=== PATIENT | female | born 1945 | race Caucasian/White ===

== ENCOUNTER 2019-10-14 12:15 | Outpatient (CLI) | payer MEDICARE, SELFPAY ==
--- NOTE | ~2019-10-14 | US_ITS ---
EXAMINATION: US carotid duplex BI DATE: 10/14/2019 16:38 INDICATION: Carotid stenosis TECHNIQUE: Grayscale, color Doppler, and pulsed Doppler images of the cervical carotid arteries were obtained. The degree of vessel stenosis is placed in one of the following categories: normal, <50%, 5 0-69%, >=70% but less than near-occlusion, near-occlusion, or total occlusion. Note that percent sten osis relative to normal distal artery lumen diameter is indirectly measured from velocity measurement s as described by Lex, et al. Radiology 2003; [id number]:340-346. COMPARISON: 12/31/2011 FINDINGS: RIGHT: The right common carotid artery (CCA) peak systolic velocity (PSV) is 96 cm/s. The right internal car otid artery (ICA) PSV is 94 cm/s. The right ICA end-diastolic velocity (EDV) is 31 cm/s. The right IC A/CCA PSV ratio is 1.0. Grayscale and color Doppler images yield an estimate of less than 50% diamete r reduction from plaque in the ICA. The external carotid artery (ECA) PSV is 94 cm/s. There is antegr vannesa flow in the right vertebral artery. LEFT: The left CCA PSV is 97 cm/s. The left ICA PSV is 88 cm/s. The left ICA EDV is 2 cm/s. The left ICA/CC A PSV ratio is 0.9. Grayscale and color Doppler images yield an estimate of less than 50% diameter re duction from plaque in the ICA. The ECA PSV is 85 cm/s. There is antegrade flow in the left vertebral artery. IMPRESSION: 1. <50% stenosis in the right internal carotid artery. 2. <50% stenosis in the left internal carotid artery. Reviewed, dictated and finalized at location A.
--- NOTE | ~2019-10-14 | MM_ITS ---
EXAMINATION: MM screening [facility] BI w jeremias HISTORY: Screening mammogram TECHNIQUE: Craniocaudal and mediolateral oblique 3-D tomosynthesis images were obtained and synthetic 2-D images were generated. CAD analysis was submitted and interpreted. COMPARISON: Comparison to multiple prior studies sequentially, with oldest reviewed study dated 08/09. BREAST PARENCHYMAL COMPOSITION: There are scattered areas of fibroglandular density. FINDINGS: There is no evidence of suspicious mass, calcification, or architectural distortion to sugg est malignancy in either breast. There has been no suspicious interval change. IMPRESSION: 1. No mammographic evidence of malignancy. 2. Recommend routine screening mammography in one year. BI-RADS Category 1: Negative Reviewed, dictated and finalized at location A.
== END 2019-10-14 12:16 | disposition home or self-care (01) ==
LOC: CHSIMG 12:20
PROVIDERS: PCP Internal Medicine; Visit Provider Internal Medicine
DX: Z12.31 Encounter for screening mammogram for malignant neoplasm of breast (principal); I65.23 Occlusion and stenosis of bilateral carotid arteries
CPT/HCPCS: 77063; 77067; 93880

== ENCOUNTER 2019-11-02 01:09 | Outpatient (CLI) | payer MEDICARE, SELFPAY ==
[2019-11-02 19:24] LABS: SARS-CoV-2 RNA PCR Negative
== END 2019-11-02 01:10 | disposition home or self-care (01) ==
LOC: ANHCOVIDDT 01:09
PROVIDERS: PCP Internal Medicine; Visit Provider Surgery
DX: Z01.812 Encounter for preprocedural laboratory examination (principal); Z11.59 Encounter for screening for other viral diseases
CPT/HCPCS: 87635; C9803; U0003

== ENCOUNTER 2019-11-04 01:48 | Day surgery (SDC) | payer MEDICARE, SELFPAY ==
[2019-10-28 13:50] VITALS: BMI 23.0
[2019-11-04 07:02] VITALS: BP 163/81; PULSE 70; RESP 16; TEMP 37; O2SAT 100; BMI 23.0
[2019-11-04 07:36] LABS: Glucose Point of Care 120 (65-105)
--- NOTE | 2019-11-04 07:58 | PM.HPGS ---
History of Present Illness History of Present Illness Consent: Risks, benefits, and alternatives of an upper GI endoscopy with possible biopsies have been discussed and questions answered. Patient agrees to proceed with procedure. Chief complaint: Melena Narrative: Lila Ravi is a 74 year old female recent presented to her PCP with blood in the stool. Apparently the 1st time that she had this occur was on 10/14/2019 she apparently saw fairly bright red blood twice on the stool. Later the medic easy was described as black tarry stools. Patient denied any abdominal pain. Patient's last colonoscopy was in 2018 was reported as normal. Further history reveals that the patient was on Alendronate for osteoporosis. This was stopped after her visit with the PCP. She was started on b.i.d. Protonix and referred for EGD since she has not previously had this. She had not been taking any NSAIDs routinely for arthritis or other problems. Today the patient denies any recent melena since she started her Protonix about now 3 weeks ago. She presents at this time for a EGD for further workup. Review of Systems Constitutional: Constitutional: Reports no additional constitutional complaints, Reports fatigue and Denies malaise Eyes: Eyes: Denies change in vision and Denies loss of vision ENT: Reports Normal hearing present, Denies change in voice, Denies dizziness, Denies hoarseness and Denies sore throat Cardiovascular: Cardiovascular: Denies chest pain, Denies leg edema and Denies dyspnea Respiratory: Respiratory: Denies cough, Denies dyspnea and Denies wheezing Gastrointestinal: Gastrointestinal: Denies abdominal pain, Reports melena, Denies change in bowel habits and Denies heartburn Genitourinary: Genitourinary: Denies urinary frequency and Denies urinary incontinence Neurologic: Reports Normal hearing present, Denies confusion, Denies dizziness, Denies loss of vision, Denies memory loss and Denies seizure-like activity Psychiatric: Psychiatric: Denies confusion, Denies depression and Denies memory loss Endocrine: Endocrine: Denies cold intolerance and Reports fatigue Hematologic/Lymphatic: Hematologic/Lymphatic: Denies easy bleeding and Denies easy bruising Allergic/Immunologic: Allergic/Immunologic: Denies wheezing PMFSH Past Medical History Medical History DM type 2 (diabetes mellitus, type 2) (Unknown) HTN (hypertension) (Unknown) Hyperlipemia (Unknown) Osteoporosis (Unknown) Vitamin D deficiency (Unknown) Family History Family History (Updated 11/04/19 @ 09:42 by Marco A Meneses MD) Father No history of peptic ulcer disease Mother No history of peptic ulcer disease Meds Home Medications and Allergies Home Medications Medication Instructions Recorded Confirmed Type cholecalciferol (vitamin D3) 25 mcg PO DAILY 10/28/19 11/04/19 History [Vitamin D3] fosinopril 10 mg PO QAM 10/28/19 11/04/19 History glipizide 5 mg PO BID 10/28/19 11/04/19 History metformin 1,000 mg PO BID 10/28/19 11/04/19 History pantoprazole 40 mg PO BID 10/28/19 11/04/19 History pravastatin 20 mg PO HS 10/28/19 11/04/19 History Allergies Allergy/AdvReac Type Severity Reaction Status Date / Time aspirin Allergy Severe TROUBLE Verified 11/04/19 07:01 BREATHING Vital Signs Vital Signs - 24 hr 11/04/19 07:02 Temperature 37.0 C Pulse Rate 70 Respiratory Rate 16 Blood Pressure 163/81 H Pulse Oximetry 100 Exam Const: General: cooperative, healthy appearing, no acute distress, well developed and alert; No confusion Nutritional Appearance: well nourished Orientation/consciousness: patient oriented x3 and No confusion Limitations: no limitations HENMT: Head: normal to inspection, normocephalic and atraumatic Ears: hearing grossly normal bilaterally General nose exam: Normal external nose present Face and sinus: no edema Mouth: Yes Nor
--- NOTE | 2019-11-04 08:13 | WPDANESEPPF ---
Anes - Initial Pre Proc Eval Procedure: Operation Date: 11/04/19 08:30 Proposed Procedures p Esophagogastroduodenoscopy - Marco A Meneses MD Date/Time: 11/04/19 08:13 Surgeon: Marco A Meneses MD Pre Op Diagnosis: Melena Patient Data Age: 74 Gender: F Height: 1.6 m Weight: 59 kg Last Vital Signs Temp 37.0 C 11/04/19 07:02 Pulse 70 11/04/19 07:02 Resp 16 11/04/19 07:02 BP 163/81 H 11/04/19 07:02 Pulse Ox 100 11/04/19 07:02 Allergies Allergy/AdvReac Type Severity Reaction Status Date / Time aspirin Allergy Severe TROUBLE Verified 11/04/19 07:01 BREATHING Home Medications Medication Instructions Recorded Confirmed Type cholecalciferol (vitamin D3) 25 mcg PO DAILY 10/28/19 11/04/19 History [Vitamin D3] fosinopril 10 mg PO QAM 10/28/19 11/04/19 History glipizide 5 mg PO BID 10/28/19 11/04/19 History metformin 1,000 mg PO BID 10/28/19 11/04/19 History pantoprazole 40 mg PO BID 10/28/19 11/04/19 History pravastatin 20 mg PO HS 10/28/19 11/04/19 History Laboratory Tests 11/04/19 07:33 POC Capillary Glucose 120 mg/dl H mg/dl (65-105) Patient hx anesthesia problems: none Family hx anesthesia problems: none PMFSH Past Medical History Medical History DM type 2 (diabetes mellitus, type 2) (Unknown) HTN (hypertension) (Unknown) Hyperlipemia (Unknown) Osteoporosis (Unknown) Vitamin D deficiency (Unknown) Anes - Eval Final PreProcedure Day of Procedure 11/04/19 08:13 Patient weight: obese Heart: regular rate and rhythm Lungs: clear to auscultation and normal air movement Airway: Mallampati scale class II Neurological: alert and oriented Last oral intake: >/= 8 hours ASA classification: III Emergent: no Anesthetic plan: proceed Anesthesia type and monitoring: general GIVS Informed Consent: The patient's anesthetic plan and its attendant risks and benefits were discussed with the patient/family/POA. Questions were solicited and answers provided to the satisfaction of the patient/family/POA.
[2019-11-04] MEDS: LACTATED RINGERS 1,000 ML 150 ML IV CONT (08:37)
[2019-11-04] MEDS: BENZOCAINE (*SP) 60 ML SPRAY CAN (HURRICAINE) 1 SPRAY MUCOUS MEM (08:40)
[2019-11-04 09:17] VITALS: BP 92/39; PULSE 52; RESP 16; O2SAT 99
[2019-11-04 09:27] VITALS: BP 123/57; PULSE 55; RESP 16; O2SAT 100
[2019-11-04 09:37] VITALS: BP 133/57; PULSE 54; RESP 16; O2SAT 100
[2019-11-04 09:47] VITALS: BP 141/60; PULSE 58; RESP 16; O2SAT 100
== END 2019-11-04 10:20 | disposition home or self-care (01) ==
PROVIDERS: PCP Internal Medicine; Visit Provider Surgery
PROC: 0DJ08ZZ Inspection of Upper Intestinal Tract, Via Natural or Artificial Opening Endoscopic (ICD-10-PCS; CPT 43235; principal; 2019-11-04 08:30)
DX: K92.1 Melena (principal); K29.50 Unspecified chronic gastritis without bleeding; K29.80 Duodenitis without bleeding; K29.30 Chronic superficial gastritis without bleeding; K31.7 Polyp of stomach and duodenum; I10 Essential (primary) hypertension; E78.5 Hyperlipidemia, unspecified; E11.9 Type 2 diabetes mellitus without complications; E55.9 Vitamin D deficiency, unspecified; M81.0 Age-related osteoporosis without current pathological fracture; Z79.84 Long term (current) use of oral hypoglycemic drugs
CPT/HCPCS: 43239; 87081; 87635; 88305; C9803; J2704; J7120; U0003

== ENCOUNTER 2020-01-12 14:10 | Outpatient (CLI) | payer MEDICARE, SELFPAY ==
--- NOTE | ~2020-01-12 | DEXA_ITS ---
BMD(1) Young-Adult(2) Age-Matched(3) Region (g/cm2) T-score Z-score WHO Classification L1 1.034 -0.9 1.1 Normal L2 1.051 -1.3 0.7 Osteopenia L3 1.185 -0.3 1.8 Normal L4 1.051 -1.3 0.7 Osteopenia L1-L4 1.081 -0.9 1.1 Normal Trend: L1-L4 Change vs Change vs Measured Age BMD(1) Baseline Previous Date (years) (g/cm2) (%) (%) 01[age]12/2020 [age] 1.081 6.5* 5.6* 09[age]28/2018 73.0 1.024 0.9 -3.2* 08/27/2016 70.9 1.058 4.2* 3.9* 08[age]17/2014 68.9 1.018 0.3 -3.4* 07[age]29/2012 66.9 1.054 3.8* 0.3 07/13/2010 64.8 1.051 3.5* 3.5* 07/08/2008 62.8 1.015 baseline - * - Indicates significant change based on 95% confidence interval. 1 - Statistically 68% of repeat scans fall within 1SD (+- 0.010 g/cm2 for AP Spine L1-L4) 2 - [place] (Combined NHANES (ages 20-30) / [employer] (ages 20-40)) AP Spine Reference Population (v112) 3 - Matched for Age, Weight (females 25-100 kg), Ethnic 11 - World Health Organization - Definition of Osteoporosis and Osteopenia for Women: Normal = T-score at or above -1.0 SD; Osteopenia = T-score between -1.0 and -2.5 SD; Osteoporosis = T-score at or below -2.5 SD; (WHO definitions only apply when a young healthy Women reference database is used to determine T-scores.) Printed: 01/12/2020 2:55:08 PM (13.60)76:3.00:50.00:12.0 0.00:10.02 0.60x1.05 20.0:%Fat=35.0% 0.00:0.00 0.00:0.00 Filename: [id number] Scan Mode: Standard;OneScan 37.0 [employer] [id number] BMD(1) Young-Adult(2,7) Age-Matched(3) Region (g/cm2) T-score Z-score WHO Classification Neck Left 0.819 -1.6 0.5 Osteopenia Right 0.792 -1.8 0.3 Osteopenia Mean 0.805 -1.7 0.4 Osteopenia Difference 0.027 -0.2 -0.2 - Total Left 0.820 -1.5 0.4 Osteopenia Right 0.725 -2.2 -0.4 Osteopenia Mean 0.773 -1.9 0.0 Osteopenia Difference 0.095 -0.8 -0.8 - Hip Irving Length Comparison (mm) (Right = 102.3 mm) (Mean = 104.0 mm) (Left = 104.1 mm) Trend: Total Mean Change vs Change vs Measured Age BMD(1) Baseline Previous Date (years) (g/cm2) (%) (%) 01/12/2020 74.3 0.773 -6.5* 4.9* 09/28/2018 73.0 0.737 -10.9* -8.4* 07/29/2012 66.9 0.805 -2.7 -2.8 07/13/2010 64.8 0.828 0.1 0.1 07/08/2008 62.8 0.827 baseline - * - Indicates significant change based on 95% confidence interval. 1 - Statistically 68% of repeat scans fall within 1SD (+- 0.010 g/cm2 for DualFemur Total) 2 - [place] (Combined NHANES (ages 20-30) / [employer] (ages 20-40)) Femur Reference Population (v112) 3 - Matched for Age, Weight (females 25-100 kg), Ethnic 7 - DualFemur Total T-score difference is 0.8. Asymmetry is Mild. 11 - World Health Organization - Definition of Osteoporosis and Osteopenia for Women: Normal = T-score at or above -1.0 SD; Osteopenia = T-score between -1.0 and -2.5 SD; Osteoporosis = T-score at or below -2.5 SD; (WHO definitions only apply when a young healthy Women reference database is used to determine T-scores.) Printed: 01/12/2020 2:55:09 PM (13.60); Filename: [email or web address].[id number]; Right Femur; 17.4:%Fat=26.3%; Neck Angle (deg)= 54; Scan Mode: Standard 37.0 uGy; Left Femur; 16.6:%Fat=31.9%; Neck Angle (deg)= 61; Scan Mode: Standard 37.0 uGy [employer] [id number]
== END 2020-01-12 14:11 | disposition home or self-care (01) ==
LOC: CHSIMG 14:12
PROVIDERS: PCP Internal Medicine; Visit Provider Internal Medicine
DX: M81.0 Age-related osteoporosis without current pathological fracture (principal)
CPT/HCPCS: 77080

== ENCOUNTER 2020-05-12 09:16 | Outpatient (CLI) | payer MEDICARE, SELFPAY ==
--- NOTE | ~2020-05-12 | US_ITS ---
EXAMINATION: US retroperitoneal comp DATE: 05/12/2020 09:49 INDICATION: Hematuria TECHNIQUE: Multiple ultrasound grayscale images of the kidneys were obtained. COMPARISON: None. FINDINGS: The right kidney measures 9.7 x 3.8 x 5.2 cm. The left kidney measures 9.0 x 4.2 x 4.1 cm. The kidney s demonstrate normal echogenicity. There is no hydronephrosis in either kidney. No stones identified . The bladder is normal with calculated prevoid bladder volume of 100 mm and capitate and post void b ladder volume of 5 mL. IMPRESSION: 1. Normal kidneys without hydronephrosis. Reviewed, dictated and finalized at location B. [employer]
== END 2020-05-12 09:17 | disposition home or self-care (01) ==
LOC: CHSIMG 09:18
PROVIDERS: PCP Internal Medicine; Visit Provider Internal Medicine
DX: R31.9 Hematuria, unspecified (principal)
CPT/HCPCS: 76770

== ENCOUNTER 2020-05-25 08:58 | Outpatient (CLI) | payer MEDICARE, SELFPAY ==
[2020-05-25] MEDS: ZOLEDRONIC ACID 5 MG/100 ML 100 ML 400 MG IVPB (09:25)
[2020-05-25 09:34] VITALS: BP 153/63; PULSE 78; RESP 14; TEMP 36.6; O2SAT 100
--- NOTE | 2020-05-25 09:56 | PC.NURSE ---
Patient here Reclast infusion. Medication education given. No concerns voiced. Reclast infusion administered. Tolerated well. Safe exit of hospital.
== END 2020-05-25 08:59 | disposition home or self-care (01) ==
PROVIDERS: PCP Internal Medicine; Visit Provider Internal Medicine
DX: M81.0 Age-related osteoporosis without current pathological fracture (principal)
CPT/HCPCS: 96365; J3489

== ENCOUNTER 2020-07-26 07:07 | Outpatient (CLI) | payer MEDICARE, SELFPAY ==
--- NOTE | ~2020-07-26 | MR_ITS ---
EXAMINATION: MR brain/brain stem wo/w con DATE: 07/26/2020 08:36 INDICATION: Memory loss. Word finding difficulty. TECHNIQUE: Magnetic resonance imaging (MRI) of the brain and brainstem was performed without and with 10 mL MultiHance intravenous contrast. Sequences included sagittal and axial T1-weighted FSE, axial diffusion-weighted FS EPI, axial T2*-weighted GRE, axial T2-weighted FLAIR Propeller, and axial T2-we ighted Propeller. Postcontrast sequences included axial and coronal T1-weighted FSE. Apparent diffusi on coefficient (ADC) maps were created. COMPARISON: Head CT 03/06/2017 FINDINGS: There are scattered areas of nonspecific increased T2-weighted signal intensity in the cere bral white matter. There is no intracranial hemorrhage, acute infarction, or abnormal intracranial ma ss lesion. The ventricles are normal in size. The paranasal sinuses are clear. The orbits are normal. The mastoid air cells are normal. IMPRESSION: 1. Mild nonspecific cerebral white matter disease, which likely represents chronic small vessel ische michael disease. Reviewed, dictated and finalized at location A. IMPRESSION: 1. Mild nonspecific cerebral white matter disease, which likely represents drive shaft and steering post repairer miles small vessel ischemic disease.
[2020-07-26 07:26] LABS: Estimated Glomerular Filt Rate 47
== END 2020-07-26 07:08 | disposition home or self-care (01) ==
LOC: CHSIMG 07:08
PROVIDERS: PCP Internal Medicine; Visit Provider Internal Medicine
DX: R41.3 Other amnesia (principal)
CPT/HCPCS: 70553; A9577

== ENCOUNTER 2020-10-05 02:25 | Emergency (ER) | payer MEDICARE, SELFPAY ==
[2020-10-05 02:30] VITALS: BP 170/73; PULSE 75; RESP 20; TEMP 36.3; O2SAT 97
--- NOTE | 2020-10-05 02:38 | ECG_ITS ---
Measurements Intervals [place] Rate: 62 P: 111 AR: 140 QRS: 24 QRSD: 80 T: 36 QT: 387 QTc: 396 Interpretive Statements SINUS RHYTHM BASELINE ARTIFACT- I, II, III, AVR, AVF NORMAL ECG Electronically Signed On 10-05-2020 8:14:36 CDT by Frederic Gamble D.O.
[2020-10-05 02:52] LABS: Add Urine Microscopic? YES; Appearance Urine Clear (Clear); Bilirubin Urine Negative (Negative); Blood Urine Negative (Negative); Color Urine Light Yellow (Yellow); Glucose Urine UA Negative (Negative); Ketones Urine Negative (Negative); Leukocyte Esterase Ur 1+ LEU/UL (Negative); Nitrate Urine Negative (Negative); Protein Urine Negative (Negative)
--- NOTE | 2020-10-05 02:54 | ED.WEAKNESS ---
HPI - Weakness General Chief complaint: Weakness Stated complaint: weakness Time Seen by Provider: 10/05/20 02:40 Source: patient Mode of arrival: ambulatory Limitations: no limitations History of Present Illness HPI Narrative: Patient states she comes in after waking up about 1:30 shaking. She denies fever, chills, and dysuria. She evidently had shaking for a few minutes, as it resolved when she was on her way here in the ambulance. She denies any other symptoms. She has had chronic urinary leakage for some time and has been using pad because of this. She has otherwise felt well and has not been ill. Onset (ago): minute(s) Duration: constant (now resolved. ) Location: generalized Severity: mild Relieving factors: none Exacerbating factors: none Associated symptoms: denies other symptoms Related Data Home Medications Medication Instructions Recorded Confirmed cholecalciferol (vitamin D3) 25 mcg PO DAILY 10/28/19 10/05/20 [Vitamin D3] fosinopril 10 mg PO QAM 10/28/19 10/05/20 glipizide 5 mg PO BID 10/28/19 10/05/20 metformin 1,000 mg PO BID 10/28/19 10/05/20 pravastatin 20 mg PO HS 10/28/19 10/05/20 vitamin B complex [B 1 tablet PO DAILY 10/05/20 10/05/20 Complex-Vitamin B12] Allergies Allergy/AdvReac Type Severity Reaction Status Date / Time aspirin Allergy Severe TROUBLE Verified 11/04/19 07:01 BREATHING Review of Systems Constitutional: Constitutional: Reports no additional constitutional complaints Eyes: Eyes: Reports no additional eye complaints ENT: Reports system reviewed and no additional complaints, except as documented Cardiovascular: Cardiovascular: Reports no additional cardiovascular complaints Respiratory: Respiratory: Reports no additional respiratory complaints Gastrointestinal: Gastrointestinal: Reports no additional gastrointestinal complaints Genitourinary: Genitourinary: Reports no additional female genitourinary complaints Musculoskeletal: Musculoskeletal: Reports no additional musculoskeletal complaints Integumentary/Breasts: Skin/Breast: Reports system reviewed and no additional complaints, except as docu Neurologic: Reports system reviewed and no additional complaints, except as documented Psychiatric: Psychiatric: Reports no additional psychiatric complaints Endocrine: Endocrine: Reports no additional endocrine complaints Hematologic/Lymphatic: Hematologic/Lymphatic: Reports no additional hematologic/lymphatic complaints Allergic/Immunologic: Allergic/Immunologic: Reports no additional allergic/immunologic complaints PMFSH Past Medical History Medical History (Updated 10/05/20 @ 05:12 by Vikas Gomes MD) DM type 2 (diabetes mellitus, type 2) (Unknown) HTN (hypertension) (Unknown) Hyperlipemia (Unknown) Osteoporosis (Unknown) Vitamin D deficiency (Unknown) Surgical History Surgical History (Updated 10/05/20 @ 03:42 by Vikas Gomes MD) History of cholecystectomy Family History Family History (Updated 10/05/20 @ 03:42 by Vikas Gomes MD) Father No history of peptic ulcer disease Cerebrovascular accident Heart disease Mother No history of peptic ulcer disease Cerebrovascular accident Heart disease Social History Social History (Updated 10/05/20 @ 03:43 by Vikas Gomes MD) Smoking status: Never smoker Alcohol use details: rare very minimal alcohol use Substance use: never Additional living arrangements comments: , lives with Gender identity (if verbalized by the patient): Female Sexual Orientation (if Verbalized by the Patient): Straight or Heterosexual Exam Const: General: no acute distress and alert Orientation/consciousness: patient oriented x3 HENMT: Head: normal to inspection Ears: external ears normal General nose exam: Normal nares present Mouth: Yes Normal oral and palatal mucosa present Throat: posterior oropharynx normal Eyes: Conjunctivae: conjunctivae n
[2020-10-05 03:01] LABS: Bacteria Urine Trace /hpf; RBC Urine 0-2 /hpf (0-2); Squamous Epithelial Cell Urine None seen /hpf (Few)
[2020-10-05 03:15] LABS: Basophils Absolute Auto 0.07 K/mm3 (0.00-0.10); Basophils Percent Auto 1.1 % (0.0-1.0); Eosinophils Absolute Auto 0.25 K/mm3 (0.02-0.50); Eosinophils Percent Auto 3.8 % (1.0-6.0); Hematocrit 35.3 % (35.0-42.0); Hemoglobin 12.4 g/dL (11.7-13.8); Immature Granulocyte Absolute 0.06 K/mm3 (0.00-0.00); Immature Granulocyte Percent A 0.9 % (0.0-0.0); Lymphocytes Absolute Auto 1.81 K/mm3 (1.10-4.50); Lymphocytes Percent Auto 27.7 % (18.0-42.0); Mean Corpuscular HGB Conc 35.1 g/dL (32.0-36.0); Mean Corpuscular Hemoglobin 29.3 pg (27.0-31.0); Mean Corpuscular Volume 83.5 fL (78.0-102.0); Mean Platelet Volume 8.4 fl (9.2-11.8); Monocytes Absolute Auto 0.59 K/mm3 (0.10-0.90); Neutrophils Absolute Auto 3.8 K/mm3 (1.7-7.2); Neutrophils Percent Auto 57.5 % (50.0-70.0); Platelet Count Result 212 K/mm3 (150-420); Red Blood Count 4.23 M/mm3 (4.20-5.40); Red Cell Distribution Width 12.3 % (11.6-14.4); White Blood Count 6.5 K/mm3 (4.8-10.8)
[2020-10-05 03:36] LABS: Lactic Acid Reflex 1.3 mmol/L (0.4-2.0)
[2020-10-05 03:37] LABS: Alanine Aminotransferase 14 U/L (14-59); Albumin Level 3.5 g/dL (3.4-5.0); Alkaline Phosphatase 49 U/L (46-116); Anion Gap 13 mmol/L (8-16); Aspartate Amino Transferase 15 U/L (15-37); Bilirubin,Total 0.4 mg/dL (0.00-1.00); Blood Urea Nitrogen 12 mg/dL (7-18); Calcium 8.7 mg/dL (8.5-10.1); Carbon Dioxide 24 mmol/L (21-32); Chloride 99 mmol/L (98-108); Estimated CRCL calculation 46 ml/min; Estimated Glomerular Filt Rate > 60; Glucose 133 mg/dL (70-99); NT Pro B Type Natriuretic Pept 205 pg/mL (0-450); Osmolality Calculated 283 mOsm/kg (285-295); Sodium 136 mmol/L (136-145); Total Protein 6.2 g/dL (6.4-8.2)
[2020-10-05] MEDS: LIDOCAINE HCL 1% LOCAL INJ 20 ML VIAL (03:40)
[2020-10-05] MEDS: cefTRIAXone 1 GM VIAL IM (03:40)
[2020-10-05] MEDS: GENTAMICIN SULFATE INJ 240 MG in DEXTROSE 5% 100 ML 100 MG IVPB (05:09)
[2020-10-05 06:10] VITALS: BP 150/78; PULSE 82; RESP 20; TEMP 36.6; O2SAT 99
== END 2020-10-05 06:15 | disposition home or self-care (01) ==
PROVIDERS: Emergency Provider Emergency Medicine; PCP Internal Medicine
DX: N30.90 Cystitis, unspecified without hematuria (principal); E11.9 Type 2 diabetes mellitus without complications; I10 Essential (primary) hypertension; E78.5 Hyperlipidemia, unspecified; M81.0 Age-related osteoporosis without current pathological fracture; E55.9 Vitamin D deficiency, unspecified
CPT/HCPCS: 36415; 80053; 81001; 83605; 83880; 84484; 85025; 87086; 87088; 87205; 93005; 96365; 96372; 99283; 99284; J0696; J1580

== ENCOUNTER 2021-02-01 07:12 | Outpatient (CLI) | payer MEDICARE, SELFPAY ==
--- NOTE | ~2021-02-01 | MM_ITS ---
EXAMINATION: MM screening [facility] BI w jeremias HISTORY: Screening mammogram TECHNIQUE: Craniocaudal and mediolateral oblique 3-D tomosynthesis images were obtained and synthetic 2-D images were generated. CAD analysis was submitted and interpreted. COMPARISON: 10/14/2019, 09/28/2018, 09/23/2017 bilateral digital screening mammogram examinations BREAST PARENCHYMAL COMPOSITION: There are scattered areas of fibroglandular density. FINDINGS: There is no evidence of suspicious mass, calcification, or architectural distortion to sugg est malignancy in either breast. There has been no suspicious interval change. IMPRESSION: 1. No mammographic evidence of malignancy. 2. Recommend routine screening mammography in one year. BI-RADS Category 1: Negative Reviewed, dictated and finalized at location A.
== END 2021-02-01 07:13 | disposition home or self-care (01) ==
LOC: CHSIMG 07:14
PROVIDERS: PCP Internal Medicine; Visit Provider Internal Medicine
DX: Z12.31 Encounter for screening mammogram for malignant neoplasm of breast (principal)
CPT/HCPCS: 77063; 77067

== ENCOUNTER 2021-06-13 10:26 | Outpatient (CLI) | payer MEDICARE, SELFPAY ==
[2021-06-13] MEDS: ZOLEDRONIC ACID 5 MG/100 ML 100 ML 400 MG IVPB (10:35)
[2021-06-13 10:38] VITALS: BMI 22.8
[2021-06-13 10:39] VITALS: BP 128/60; PULSE 72; RESP 14; TEMP 36.7; O2SAT 97
--- NOTE | 2021-06-13 10:49 | PC.NURSE ---
Patient here for yearly Reclast IV infusion. Education given on med. No concerns voiced. IV Reclast administered. See MAR. Tolerated well. Safe exit of hospital.
== END 2021-06-13 10:27 | disposition home or self-care (01) ==
PROVIDERS: PCP Internal Medicine; Visit Provider Internal Medicine
DX: M81.0 Age-related osteoporosis without current pathological fracture (principal)
CPT/HCPCS: 96365; 96374; J3489

== ENCOUNTER 2021-07-15 08:19 | Emergency (ER) | payer MEDICARE, SELFPAY ==
--- NOTE | ~2021-07-15 | CT_ITS ---
EXAMINATION: CT brain wo con INDICATION: Head injury COMPARISON: 03/06/2017 TECHNIQUE: Standard unenhanced head CT. The dose-length product (DLP) was 529.67 mGy-cm. The mA was a djusted according to patient size. Iterative reconstruction technique was employed. FINDINGS: There is no acute intraparenchymal hemorrhage. No evidence of mass lesion. No evidence of a cute infarction. There is mild periventricular and subcortical hypodensity probably related to small vessel ischemic disease. There is mild prominence of the sulci and ventricles related to cerebral atr ophy. Intracranial calcified cerebral atherosclerosis is noted. There are no extra-axial collections. There is no mass effect or midline shift. The orbits and soft tissues are unremarkable. The visualiz ed sinuses and mastoid air cells are well aerated. IMPRESSION: 1. No acute intracranial abnormality. 2. Age related findings. Reviewed, dictated and finalized at location A.
--- NOTE | 2021-07-15 08:34 | ED.FALL ---
HPI - Fall General Chief Complaint: Head Injury Stated Complaint: fell head injury Time Seen by Provider: 07/15/21 08:34 Source: patient and RN notes reviewed Mode of arrival: ambulatory Limitations: no limitations History of Present Illness HPI Narrative: Patient states that she was at home getting her makeup on prior to nondenominational Then she woke up on the bed with a bump on her head and abrasion on her knee. did not have any memory of passing out. complaint: fall Onset (ago): hour(s) (1.5) Fall from: standing Fall witnessed: no Place fall occurred: home Loss of consciousness: unsure Prolonged down time: no Symptoms prior to fall: lightheadedness Location of injury: head Location of injury - extremities: Left: knee Severity: mild Quality: dull and aching Related Data Home Medications Medication Instructions Recorded Confirmed fosinopril 10 mg PO QAM 10/28/19 07/15/21 glipizide 5 mg PO BID 10/28/19 07/15/21 metformin 1,000 mg PO BID 10/28/19 07/15/21 pravastatin 20 mg PO HS 10/28/19 07/15/21 vitamin B complex [B 1 tablet PO DAILY 10/05/20 07/15/21 Complex-Vitamin B12] Allergies Allergy/AdvReac Type Severity Reaction Status Date / Time aspirin Allergy Severe TROUBLE Verified 07/15/21 08:43 BREATHING Review of Systems Review of Systems: All systems reviewed & are unremarkable except as noted in HPI and below PMFSH Past Medical History Medical History DM type 2 (diabetes mellitus, type 2) (Unknown) HTN (hypertension) (Unknown) Hyperlipemia (Unknown) Osteoporosis (Unknown) Vitamin D deficiency (Unknown) Surgical History Surgical History History of cholecystectomy Family History Family History Father No history of peptic ulcer disease Cerebrovascular accident Heart disease Mother No history of peptic ulcer disease Cerebrovascular accident Heart disease Social History Social History (Updated 07/15/21 @ 08:46 by Vikas Albert MD) Smoking status: Never smoker Alcohol use details: rare very minimal alcohol use Substance use: never Additional living arrangements comments: Lives alone, in Apr 2021 Gender identity (if verbalized by the patient): Female Sexual Orientation (if Verbalized by the Patient): Straight or Heterosexual Exam Const: General: healthy appearing, no acute distress and alert Nutritional Appearance: well nourished Orientation/consciousness: patient oriented x3 HENMT: Head: contusion right parietal Ears: hearing grossly normal bilaterally, external ears normal and TM's normal bilaterally Face and sinus: normal facial exam Mouth: Yes moist mucous membranes Eyes: Conjunctivae: conjunctivae normal Pupils: Equal, round and reactive pupils present EOM: EOMs intact bilaterally Neck: Neck: normal visual inspection Resp: Effort & Inspection: normal respiratory effort Auscultation: clear to auscultation bilaterally Cardio: Rate: regular rate Rhythm: regular rhythm GI: GI Palp: Yes Soft to palpation, Yes Tenderness to palpation present (GI) and No Guarding due to palpation present (GI) Auscultation: normal bowel sounds Back/Spine/Pelvis: Cervical Spine: cervical ROM normal Thoracic/Lumbar Spine: thoraco-lumbar ROM normal Skin: General skin exam: normal color Rashes: no rashes Neuro: General: patient oriented x3, moves all extremities, no focal motor deficits and CN's II-XI intact bilaterally Speech: normal speech Gait exam (Neuro): Normal gait present Extrem: General: normal to inspection and no clubbing, cyanosis or edema Psych: Appearance: grossly normal and well kempt Mental Status: mental status grossly normal Affect: normal affect Attitude: cooperative Thought content: Yes Normal thought content present MDM - Fall Differential Diagnosis D
[2021-07-15 08:38] VITALS: BP 160/70; PULSE 73; RESP 16; TEMP 35.8; O2SAT 100
[2021-07-15 08:41] LABS: Glucose Point of Care 169 mg/dl (65-105)
--- NOTE | 2021-07-15 08:44 | ECG_ITS ---
Measurements Intervals [place] Rate: 68 P: 92 MS: 160 QRS: 52 QRSD: 83 T: 15 QT: 368 QTc: 392 Interpretive Statements SINUS RHYTHM NONSPECIFIC T-WAVE ABNORMALITY COMPARED TO ECG 10/05/2020 02:58:21 T-WAVE ABNORMALITY NOW PRESENT Electronically Signed On 07-17-2021 14:15:16 CDT by Nahomi Bajwa M.D.
[2021-07-15 09:06] LABS: Basophils Absolute Auto 0.07 K/mm3 (0.00-0.10); Basophils Percent Auto 0.8 % (0.0-1.0); Eosinophils Absolute Auto 0.21 K/mm3 (0.02-0.50); Eosinophils Percent Auto 2.3 % (1.0-6.0); Hematocrit 40.1 % (35.0-42.0); Hemoglobin 13.6 g/dL (11.7-13.8); Immature Granulocyte Absolute 0.12 K/mm3 (0.00-0.00); Immature Granulocyte Percent A 1.3 % (0.0-0.0); Lymphocytes Absolute Auto 1.31 K/mm3 (1.10-4.50); Lymphocytes Percent Auto 14.2 % (18.0-42.0); Mean Corpuscular HGB Conc 33.9 g/dL (32.0-36.0); Mean Corpuscular Hemoglobin 29.2 pg (27.0-31.0); Mean Corpuscular Volume 86.1 fL (78.0-102.0); Mean Platelet Volume 8.7 fl (9.2-11.8); Monocytes Absolute Auto 0.56 K/mm3 (0.10-0.90); Monocytes Percent Auto 6.1 % (2.0-11.0); Neutrophils Absolute Auto 6.9 K/mm3 (1.7-7.2); Neutrophils Percent Auto 75.3 % (50.0-70.0); Platelet Count Result 212 K/mm3 (150-420); Red Blood Count 4.66 M/mm3 (4.20-5.40); Red Cell Distribution Width 12.5 % (11.6-14.4); White Blood Count 9.2 K/mm3 (4.8-10.8)
[2021-07-15 09:26] LABS: Alanine Aminotransferase 18 U/L (14-59); Albumin Level 3.6 g/dL (3.4-5.0); Alkaline Phosphatase 50 U/L (46-116); Anion Gap 7 mmol/L (8-16); Aspartate Amino Transferase 18 U/L (15-37); Bilirubin,Total 0.4 mg/dL (0.00-1.00); Blood Urea Nitrogen 17 mg/dL (7-18); Calcium 8.8 mg/dL (8.5-10.1); Carbon Dioxide 28 mmol/L (21-32); Chloride 100 mmol/L (98-108); Estimated CRCL calculation 36 ml/min; Estimated Glomerular Filt Rate 58; Glucose 200 mg/dL (70-99); Magnesium 1.6 mg/dL (1.8-2.4); Osmolality Calculated 287 mOsm/kg (285-295); Potassium 4.5 mmol/L (3.5-5.1); Sodium 135 mmol/L (136-145); Total Protein 6.6 g/dL (6.4-8.2); Troponin I 8.9 ng/L (0.00-60.4)
[2021-07-15 09:48] VITALS: BP 129/60; PULSE 71; RESP 16; TEMP 37.1; O2SAT 100
== END 2021-07-15 10:15 | disposition home or self-care (01) ==
PROVIDERS: Emergency Provider Emergency Medicine; PCP Internal Medicine
DX: E83.42 Hypomagnesemia (principal); R55 Syncope and collapse; S00.03XA Contusion of scalp, initial encounter; W19.XXXA Unspecified fall, initial encounter; E11.9 Type 2 diabetes mellitus without complications; I10 Essential (primary) hypertension; E78.5 Hyperlipidemia, unspecified; M81.0 Age-related osteoporosis without current pathological fracture
CPT/HCPCS: 36415; 70450; 80053; 82948; 83735; 84484; 85025; 93005; 99284

== ENCOUNTER 2022-03-22 09:51 | Outpatient (CLI) | payer MEDICARE, SELFPAY ==
[2022-03-22 10:17] LABS: Basophils Absolute Auto 0.05 K/mm3 (0.00-0.10); Basophils Percent Auto 0.8 % (0.0-1.0); Eosinophils Percent Auto 4.6 % (1.0-6.0); Hemoglobin 9.4 g/dL (11.7-13.8); Immature Granulocyte Absolute 0.03 K/mm3 (0.00-0.00); Immature Granulocyte Percent A 0.5 % (0.0-0.0); Lymphocytes Absolute Auto 2.05 K/mm3 (1.10-4.50); Lymphocytes Percent Auto 31.2 % (18.0-42.0); Mean Corpuscular HGB Conc 31.3 g/dL (32.0-36.0); Mean Corpuscular Hemoglobin 25.8 pg (27.0-31.0); Mean Corpuscular Volume 82.2 fL (78.0-102.0); Mean Platelet Volume 8.9 fl (9.2-11.8); Monocytes Absolute Auto 0.69 K/mm3 (0.10-0.90); Monocytes Percent Auto 10.5 % (2.0-11.0); Neutrophils Absolute Auto 3.5 K/mm3 (1.7-7.2); Neutrophils Percent Auto 52.4 % (50.0-70.0); Platelet Count Result 277 K/mm3 (150-420); Red Blood Count 3.65 M/mm3 (4.20-5.40); Red Cell Distribution Width 12.4 % (11.6-14.4); White Blood Count 6.6 K/mm3 (4.8-10.8)
== END 2022-03-22 09:52 | disposition home or self-care (01) ==
LOC: CHSLAB 09:53
PROVIDERS: PCP Internal Medicine; Visit Provider Internal Medicine
DX: D64.9 Anemia, unspecified (principal)
CPT/HCPCS: 36415; 85025

== ENCOUNTER 2022-04-01 08:00 | Outpatient (CLI) | payer MEDICARE, SELFPAY ==
--- NOTE | ~2022-04-01 | MM_ITS ---
EXAMINATION: MM screening [facility] BI w jeremias HISTORY: Screening TECHNIQUE: Craniocaudal and mediolateral oblique 3-D tomosynthesis images were obtained and synthetic 2-D images were generated. CAD analysis was submitted and interpreted. COMPARISON: Comparison to multiple prior studies sequentially, with oldest reviewed study dated 08/21. BREAST PARENCHYMAL COMPOSITION: FINDINGS: There is no evidence of suspicious mass, calcification, or architectural distortion to sugg est malignancy in either breast. There has been no suspicious interval change. IMPRESSION: 1. No mammographic evidence of malignancy. 2. Recommend routine screening mammography in one year. BI-RADS Category 1: Negative Reviewed, dictated and finalized at location A. HING MACHINE OPERATING ENGINEER
--- NOTE | ~2022-04-01 | DEXA_ITS ---
Bone Density Report Name: VLADIMIR CHAVEZ Age: 76 Sex: Female Ethnicity: White Date of : 1945 Indication: postmenopausal; screening for osteoporosis; height loss; Referring Provider: Zully Betancourt Study: Bone densitometry was performed. Exam Date: April 01, 2022 Accession number: [id number] Bone Density: Region BMD T-score Z-score Classification AP Spine(L1-L4) 0.939 -1.0 1.5 Normal Femoral Neck (Left) 0.697 -1.4 0.8 Osteopenia Total Hip (Left) 0.733 -1.7 0.2 Osteopenia Femoral Neck (Right) 0.680 -1.5 0.6 Osteopenia Total Hip (Right) 0.709 -1.9 0.0 Osteopenia Femoral Neck Mean 0.688 -1.4 0.7 Osteopenia Total Hip Mean 0.721 -1.8 0.1 Osteopenia World Health Organization criteria for BMD impression classify patients as: Normal (T-score at or above -1.0), Osteopenia (T-score between -1.0 and -2.5), or Osteoporosis (T-score at or below -2.5). 10-year Fracture Risk(1): Major Osteoporotic Fracture 12% Hip Fracture 2.6% Reported Risk Factors: [place] (), Neck BMD=0.680, BMI=24.6 (1) FRAX(R) Version 3.08. Fracture probability calculated for an untreated patient. Fracture probability may be lower if the patient has received treatment. Clinical Information Provided by Patient: Has used the following medications: Vitamin D, Calcium Patient maximum height was 63 Menopause Age: 50 No regular weight bearing exercise Drinks caffeinated beverages Onset of menses at age 13 Number of children 1 Impression: The patient has low bone mass, based on the Right Total Hip T-score. Discussion: BONE DENSITY IS LOW AT ONE OR MORE SKELETAL SITES. This patient's lowest T-score is low at one or more skeletal sites. It meets the World Health Organization's (WHO) criteria for ?low bone mass? (T-score between -1.0 and -2.5). The patient's 10-year risk of fracture as calculated by FRAX is less than the threshold where pharmacological therapy is recommended by the National Osteoporosis Foundation (NOF). However, all treatment decisions require clinical judgment and consideration of individual patient factors, including patient preferences, comorbidities, previous drug use, risk factors not captured in the FRAX model (e.g., frailty, falls, vitamin D deficiency, increased bone turnover, interval significant decline in bone density) and possible under or overestimation of fracture risk by FRAX. The patient should follow a healthful lifestyle (good nutrition with adequate calcium and vitamin D, and appropriate weight-bearing exercise). Follow-Up: Consider repeating this study in 2 to 3 years to reassess this patient's status, or sooner if there is some new clinical indication. Reported by: Dr. Anish David on 04/01/2022 8:47:00 AM.
[2022-04-01 08:34] LABS: Basophils Absolute Auto 0.07 K/mm3 (0.00-0.10); Basophils Percent Auto 1.1 % (0.0-1.0); Eosinophils Absolute Auto 0.29 K/mm3 (0.02-0.50); Eosinophils Percent Auto 4.5 % (1.0-6.0); Hematocrit 31.1 % (35.0-42.0); Hemoglobin 9.5 g/dL (11.7-13.8); Immature Granulocyte Absolute 0.03 K/mm3 (0.00-0.00); Immature Granulocyte Percent A 0.5 % (0.0-0.0); Lymphocytes Percent Auto 27.7 % (18.0-42.0); Mean Corpuscular HGB Conc 30.5 g/dL (32.0-36.0); Mean Corpuscular Hemoglobin 24.8 pg (27.0-31.0); Mean Corpuscular Volume 81.2 fL (78.0-102.0); Mean Platelet Volume 8.9 fl (9.2-11.8); Monocytes Absolute Auto 0.62 K/mm3 (0.10-0.90); Monocytes Percent Auto 9.5 % (2.0-11.0); Neutrophils Absolute Auto 3.7 K/mm3 (1.7-7.2); Neutrophils Percent Auto 56.7 % (50.0-70.0); Platelet Count Result 257 K/mm3 (150-420); Red Blood Count 3.83 M/mm3 (4.20-5.40); Red Cell Distribution Width 12.6 % (11.6-14.4); White Blood Count 6.5 K/mm3 (4.8-10.8)
== END 2022-04-01 08:01 | disposition home or self-care (01) ==
LOC: CHSIMG 08:02
PROVIDERS: PCP Internal Medicine; Visit Provider Internal Medicine
DX: Z12.31 Encounter for screening mammogram for malignant neoplasm of breast (principal); D64.9 Anemia, unspecified; M85.89 Other specified disorders of bone density and structure, multiple sites
CPT/HCPCS: 36415; 77063; 77067; 77080; 85025

== ENCOUNTER 2022-05-09 00:57 | Day surgery (SDC) | payer MEDICARE, SELFPAY ==
[2022-04-26 13:21] VITALS: BMI 23.8
[2022-05-09 06:48] VITALS: BP 184/67; PULSE 76; RESP 21; TEMP 36.2; O2SAT 100; BMI 23.3
[2022-05-09] MEDS: LACTATED RINGERS 1,000 ML 150 ML IV CONT (07:10)
[2022-05-09 07:11] LABS: Glucose Point of Care 93 mg/dl (65-105)
--- NOTE | 2022-05-09 07:39 | WPDANESEPPF ---
Anes - Initial Pre Proc Eval Procedure: Operation Date: 05/09/22 08:00 Proposed Procedures p Esophagogastroduodenoscopy & Colonoscopy - Abhijeet Loomis DO Date/Time: 05/09/22 07:39 Surgeon: Abhijeet Loomis DO Pre Op Diagnosis: JOSE ARMANDO Patient Data Age: 76 Gender: F Height: 1.57 m Weight: 57.9 kg Last Vital Signs Temp 97.1 F L 05/09/22 06:48 Pulse 76 05/09/22 06:48 Resp 21 H 05/09/22 06:48 BP 184/67 H 05/09/22 06:48 Pulse Ox 100 05/09/22 06:48 O2 Del Method Room Air 05/09/22 06:48 Allergies Allergy/AdvReac Type Severity Reaction Status Date / Time aspirin Allergy Severe TROUBLE Verified 05/09/22 06:46 BREATHING Home Medications Medication Instructions Recorded Confirmed Type fosinopril 10 mg tablet 10 mg PO QAM 10/28/19 04/26/22 History glipizide 5 mg tablet, extended 5 mg PO BID 10/28/19 04/26/22 History release 24 hr metformin 500 mg tablet 1,000 mg PO BID 10/28/19 04/26/22 History pravastatin 20 mg tablet 20 mg PO HS 10/28/19 04/26/22 History vitamin B complex (B 1 tablet PO DAILY 10/05/20 04/26/22 History Complex-Vitamin B12 tablet) multivit with 1 tablet PO DAILY 04/26/22 04/26/22 History riijmmuw-ewzj-QR-lutein 8 mg iron-400 mcg-300 mcg tablet (Multivitamin Women 50 Plus) pantoprazole 20 mg tablet,delayed 20 mg PO QAM 04/26/22 04/26/22 History release trazodone 50 mg tablet 50 mg PO HS 04/26/22 04/26/22 History Laboratory Tests 05/09/22 07:07 POC Capillary Glucose 93 mg/dl mg/dl (65-105) Patient hx anesthesia problems: none Family hx anesthesia problems: none Results Review: All pre-operative results and documents have been reviewed as part of the pre-operative evaluation. FOR[facility]LY [facility] Past Medical History Medical History DM type 2 (diabetes mellitus, type 2) (Unknown) HTN (hypertension) (Unknown) Hyperlipemia (Unknown) Osteoporosis (Unknown) Vitamin D deficiency (Unknown) Surgical History Surgical History History of cholecystectomy Family History Family History Father No history of peptic ulcer disease Cerebrovascular accident Heart disease Mother No history of peptic ulcer disease Cerebrovascular accident Heart disease Social History Social History (Updated 07/15/21 @ 08:46 by Vikas Albert MD) Smoking status: Never smoker Alcohol intake: current Alcohol use details: rarely Substance use: never Substance use type: does not use Living arrangements: alone Additional living arrangements comments: Lives alone, in Apr 2021 Gender identity (if verbalized by the patient): Female Sexual Orientation (if Verbalized by the Patient): Straight or Heterosexual Spiritual care concerns: No Anes - Eval Final PreProcedure Day of Procedure 05/09/22 07:39 Patient weight: normal Heart: regular rate and rhythm Lungs: clear to auscultation Airway: Mallampati scale class II Neurological: alert and oriented Last oral intake: >/= 8 hours ASA classification: III Emergent: no Anesthetic plan: proceed Anesthesia type and monitoring: general GIVS and standard monitoring Results Review: All pre-operative results and documents have been reviewed as part of the pre-operative evaluation. Informed Consent: The patient's anesthetic plan and its attendant risks and benefits were discussed with the patient/family/POA. Questions were solicited and answers provided to the satisfaction of the patient/family/POA.
--- NOTE | 2022-05-09 07:54 | PM.IMHP ---
H&P: HPI History of Present Illness Date/Time: 05/09/22 07:54 Chief Complaint: Iron deficiency anemia, occult positive stool Narrative: this is a 76-year-old woman who presents for colonoscopy and EGD. She was recently noted to have iron deficiency anemia and had a positive occult stool blood test. She denies noticing any hematochezia or melena. She denies any prior history of hemorrhoids. She denies GERD or acid reflux symptoms. Her last colonoscopy was 4 years ago and several polyps were removed at that time. She denies a family history of colon cancer. Review of Systems Review of Systems: All systems reviewed & are unremarkable except as noted in HPI and below Constitutional: Constitutional: Denies chills, Denies fever(s), Denies headache(s) and Denies weight loss Eyes: Eyes: Denies change in vision ENT: Denies dizziness, Denies headache(s), Denies neck mass and Denies throat swelling Cardiovascular: Cardiovascular: Denies chest pain, Denies lightheadedness and Denies dyspnea Respiratory: Respiratory: Denies cough, Denies dyspnea and Denies wheezing Gastrointestinal: Gastrointestinal: Denies abdominal pain, Denies change in bowel habits, Denies nausea and Denies vomiting Genitourinary: Genitourinary: Denies hematuria and Denies dysuria Musculoskeletal: Musculoskeletal: Reports as per HPI Integumentary/Breasts: Skin/Breast: Reports as per HPI Neurologic: Denies dizziness and Denies headache(s) Allergic/Immunologic: Allergic/Immunologic: Denies throat swelling and Denies wheezing PMFSH Past Medical History Medical History DM type 2 (diabetes mellitus, type 2) (Unknown) HTN (hypertension) (Unknown) Hyperlipemia (Unknown) Osteoporosis (Unknown) Vitamin D deficiency (Unknown) Surgical History Surgical History History of cholecystectomy Family History Family History Father No history of peptic ulcer disease Cerebrovascular accident Heart disease Mother No history of peptic ulcer disease Cerebrovascular accident Heart disease Social History Social History (Updated 07/15/21 @ 08:46 by Vikas Albert MD) Smoking status: Never smoker Alcohol intake: current Alcohol use details: rarely Substance use: never Substance use type: does not use Living arrangements: alone Additional living arrangements comments: Lives alone, in Apr 2021 Gender identity (if verbalized by the patient): Female Sexual Orientation (if Verbalized by the Patient): Straight or Heterosexual Spiritual care concerns: No Meds Home Medications and Allergies Home Medications Medication Instructions Recorded Confirmed Type fosinopril 10 mg tablet 10 mg PO QAM 10/28/19 04/26/22 History glipizide 5 mg tablet, extended 5 mg PO BID 10/28/19 04/26/22 History release 24 hr metformin 500 mg tablet 1,000 mg PO BID 10/28/19 04/26/22 History pravastatin 20 mg tablet 20 mg PO HS 10/28/19 04/26/22 History vitamin B complex (B 1 tablet PO DAILY 10/05/20 04/26/22 History Complex-Vitamin B12 tablet) multivit with 1 tablet PO DAILY 04/26/22 04/26/22 History lwfmirzh-oezy-SB-lutein 8 mg iron-400 mcg-300 mcg tablet (Multivitamin Women 50 Plus) pantoprazole 20 mg tablet,delayed 20 mg PO QAM 04/26/22 04/26/22 History release trazodone 50 mg tablet 50 mg PO HS 04/26/22 04/26/22 History Allergies Allergy/AdvReac Type Severity Reaction Status Date / Time aspirin Allergy Severe TROUBLE Verified 05/09/22 06:46 BREATHING Vital Signs Vital Signs - 24 hr 05/09/22 06:48 Temperature 36.2 C L Pulse Rate 76 Respiratory Rate 21 H Blood Pressure 184/67 H Pulse Oximetry 100 Oxygen Delivery Room Air Exam Const: General: no acute distress and alert Orientation/consciousness: patient or
[2022-05-09 08:39] VITALS: BP 98/48; PULSE 67; RESP 16; O2SAT 100
[2022-05-09 08:49] VITALS: BP 112/43; PULSE 70; RESP 18; O2SAT 100
[2022-05-09 08:59] VITALS: BP 137/61; PULSE 68; RESP 15; O2SAT 100
== END 2022-05-09 09:21 | disposition home or self-care (01) ==
PROVIDERS: PCP Internal Medicine; Visit Provider Surgery
PROC: 0DJ08ZZ Inspection of Upper Intestinal Tract, Via Natural or Artificial Opening Endoscopic (ICD-10-PCS; CPT 43235; principal; 2022-05-09 08:00)
DX: D50.9 Iron deficiency anemia, unspecified (principal); K64.8 Other hemorrhoids; K44.9 Diaphragmatic hernia without obstruction or gangrene; R19.5 Other fecal abnormalities; E11.9 Type 2 diabetes mellitus without complications; I10 Essential (primary) hypertension; E78.5 Hyperlipidemia, unspecified; M81.0 Age-related osteoporosis without current pathological fracture; E55.9 Vitamin D deficiency, unspecified; Z79.84 Long term (current) use of oral hypoglycemic drugs
CPT/HCPCS: 45378; 43235; 82948; J2704; J7120

== ENCOUNTER 2022-07-04 09:55 | Outpatient (CLI) | payer MEDICARE, SELFPAY ==
[2022-07-04] MEDS: IRON SUCROSE COMPLEX 300 MG in SODIUM CHLORIDE 0.9% IV 250 ML 125 MG IVPB (10:15)
[2022-07-04 10:17] VITALS: BP 128/69; PULSE 72; RESP 14; TEMP 36.5; O2SAT 97; BMI 23.0
--- NOTE | 2022-07-04 12:39 | PC.NURSE ---
Patient here for #1 of 3 IV Venofer infusions. Education given. All concerns answered. IV Venofer administered. SEE MAR. Tolerated well. Will return 07/18/22 at 1000 for #2 of 3. Safe exit of hospital per self.
== END 2022-07-04 09:56 | disposition home or self-care (01) ==
LOC: CHSTREATRM 09:58
PROVIDERS: PCP Internal Medicine; Visit Provider Internal Medicine
DX: D50.9 Iron deficiency anemia, unspecified (principal)
CPT/HCPCS: 96365; 96366; J1756; J7050

== ENCOUNTER 2022-07-04 15:40 | Emergency (ER) | payer MEDICARE, SELFPAY ==
[2022-07-04 15:50] VITALS: BP 133/70; PULSE 80; RESP 17; TEMP 36.7; O2SAT 100
[2022-07-04 16:14] VITALS: BP 138/67; PULSE 72; O2SAT 96
--- NOTE | 2022-07-04 16:35 | ED.EXTPRO ---
HPI - Extremity Problem General Chief complaint: Extremity Problem,Nontraumatic Stated complaint: adverse reaction of iron infusion Time Seen by Provider: 07/04/22 15:57 Source: patient Mode of arrival: ambulatory Limitations: no limitations History of Present Illness HPI Narrative: This is a 76-year-old female with some recent iron infusion that occurred earlier today and after the infusion patient was having some chest discomfort which has resolved prior to arrival to the ER and was also concerned of lower extremity edema post iron infusion. Currently there is some trace edema to the ankles with some no shortness of breath no chest pain no fever chills no headaches no blurry vision no nausea vomiting or abdominal pain. Complaint: extremity swelling Onset (ago): hour(s) Pain Consistency: constant Location: lower extremity Related Data Home Medications Medication Instructions Recorded Confirmed fosinopril 10 mg tablet 10 mg PO QAM 10/28/19 07/04/22 glipizide 5 mg tablet, extended 5 mg PO BID 10/28/19 07/04/22 release 24 hr metformin 500 mg tablet 1,000 mg PO BID 10/28/19 07/04/22 pravastatin 20 mg tablet 20 mg PO HS 10/28/19 07/04/22 vitamin B complex (B 1 tablet PO DAILY 10/05/20 07/04/22 Complex-Vitamin B12 tablet) multivit with 1 tablet PO DAILY 04/26/22 07/04/22 ltdnpzbz-tyeb-UZ-lutein 8 mg iron-400 mcg-300 mcg tablet (Multivitamin Women 50 Plus) pantoprazole 20 mg tablet,delayed 20 mg PO QAM 04/26/22 07/04/22 release Allergies Allergy/AdvReac Type Severity Reaction Status Date / Time aspirin Allergy Severe TROUBLE Verified 07/04/22 16:01 BREATHING Review of Systems Review of Systems: All systems reviewed & are unremarkable except as noted in HPI and below PMFSH Past Medical History Medical History DM type 2 (diabetes mellitus, type 2) (Unknown) HTN (hypertension) (Unknown) Hyperlipemia (Unknown) Osteoporosis (Unknown) Vitamin D deficiency (Unknown) Surgical History Surgical History History of cholecystectomy Family History Family History Father No history of peptic ulcer disease Cerebrovascular accident Heart disease Mother No history of peptic ulcer disease Cerebrovascular accident Heart disease Social History Social History Smoking status: Never smoker Alcohol intake: current Alcohol use details: rarely Substance use: never Substance use type: does not use Living arrangements: alone Additional living arrangements comments: Lives alone, in Apr 2021 Gender identity (if verbalized by the patient): Female Sexual Orientation (if Verbalized by the Patient): Straight or Heterosexual Spiritual care concerns: No Exam Const: General: healthy appearing Nutritional Appearance: well nourished Orientation/consciousness: patient oriented x3 HENMT: Head: normal to inspection Mouth: Yes Normal oral and palatal mucosa present Eyes: Conjunctivae: conjunctivae normal EOM: EOMs intact bilaterally Neck: Neck: normal visual inspection Chest: Chest palpation & inspection: normal inspection of the chest Resp: Effort & Inspection: normal respiratory effort Auscultation: clear to auscultation bilaterally Cardio: Rate: regular rate Rhythm: regular rhythm GI: GI Palp: Yes Soft to palpation : General: Yes bladder normal to palpation Urinary Catheter: Urinary Catheter: patent and draining Back/Spine/Pelvis: Back: no CVA tenderness Skin: General skin exam: normal color Rashes: no rashes Wounds: no wounds Neuro: General: patient oriented x3 and moves all extremities Cranial nerves: Yes Nystagmus not present Extrem: Other: Trace edema bilateral ankles Psych: Mental Status: sd
[2022-07-04 16:52] VITALS: BP 138/90; PULSE 72; RESP 17; TEMP 36.7; O2SAT 98
== END 2022-07-04 16:54 | disposition home or self-care (01) ==
PROVIDERS: Emergency Provider Emergency Medicine; PCP Internal Medicine
DX: R60.0 Localized edema (principal); E78.5 Hyperlipidemia, unspecified; I10 Essential (primary) hypertension; E11.9 Type 2 diabetes mellitus without complications; Z79.84 Long term (current) use of oral hypoglycemic drugs
CPT/HCPCS: 99281

== ENCOUNTER 2022-07-26 05:53 | Outpatient (CLI) | payer MEDICARE, SELFPAY ==
--- NOTE | 2022-07-26 06:46 | SUR.OPER ---
Patient brought to GI Lab. Instructions for patient undergoing Capsule Endoscopy reviewed with patient. Consent form signed. Sensor array applied to patient's abdomen and connected to recorded. Patient swallowed capsule with 2 cups of water infused with Simethicone. Patient instructed they may have clear liquids at 0830 this AM and eat or drink at 1030 this AM. Patient instructed to return to GI Lab at 1500 this afternoon for removal of recording device and to call [phone] or to return to the hospital if any nausea and vomiting or abdominal pain is experienced.
--- NOTE | 2022-07-26 15:15 | SUR.PHASEII ---
Patient returned to the GI Lab at 1512 for recorder box removal. Patient voiced no complaints. States they have understanding of instructions. Patient left ambulatory.
== END 2022-07-26 05:54 | disposition home or self-care (01) ==
PROVIDERS: PCP Internal Medicine; Visit Provider Internal Medicine Gastroenterology
PROC: 0DJ07ZZ Inspection of Upper Intestinal Tract, Via Natural or Artificial Opening (ICD-10-PCS; CPT 91110; principal; 2022-07-26 07:00)
DX: D50.9 Iron deficiency anemia, unspecified (principal)
CPT/HCPCS: 91110

== ENCOUNTER 2022-08-07 09:51 | Outpatient (CLI) | payer MEDICARE, SELFPAY ==
[2022-08-07] MEDS: ZOLEDRONIC ACID 5 MG/100 ML 100 ML 400 MG IVPB (10:18)
== END 2022-08-07 09:52 | disposition home or self-care (01) ==
PROVIDERS: PCP Internal Medicine; Visit Provider Internal Medicine
DX: M81.0 Age-related osteoporosis without current pathological fracture (principal)
CPT/HCPCS: 96365; 96374; J3489

== ENCOUNTER 2023-04-17 08:03 | Outpatient (CLI) | payer MEDICARE, SELFPAY ==
--- NOTE | ~2023-04-17 | MM_ITS ---
EXAMINATION: MM screening [facility] BI w jeremias HISTORY: Screening mammogram TECHNIQUE: Craniocaudal and mediolateral oblique 3-D tomosynthesis images were obtained and synthetic 2-D images were generated. CAD analysis was submitted and interpreted. COMPARISON: 04/01/2022, 02/01/2021, 10/14/2019 BREAST PARENCHYMAL COMPOSITION: There are scattered areas of fibroglandular density. FINDINGS: No suspicious mass, calcification, or architectural distortion are identified in either milagros ast to suggest malignancy. There has been no suspicious interval change. IMPRESSION: 1. No mammographic evidence of malignancy. 2. Recommend routine screening mammography in one year. BI-RADS Category 1: Negative Reviewed, dictated and finalized at location A. CTIVE CAPTAIN
== END 2023-04-17 08:04 | disposition home or self-care (01) ==
LOC: CHSIMG 08:04
PROVIDERS: PCP Internal Medicine; Visit Provider Internal Medicine
DX: Z12.31 Encounter for screening mammogram for malignant neoplasm of breast (principal)
CPT/HCPCS: 77063; 77067

== ENCOUNTER 2024-08-15 09:47 | Emergency (ER) | payer MEDICARE, SELFPAY ==
--- NOTE | ~2024-08-15 | CT_ITS ---
CT brain wo con Ordering provider: Janes Sofia MD History: 78 years Female with . headache/AMS x1 day, NKI . Comparison: None. Technique: CT of the head without contrast. Radiation reduction technique utilized.The dose-length pr oduct was 605.33 mGy-cm. FINDINGS: BRAIN PARENCHYMA AND CSF SPACES: Mild leukoaraiosis and diffuse cortical atrophy. Mild atheromatous d isease. No midline shift, mass effect or hemorrhage. The brain parenchyma and CSF spaces are otherwi se normal. VISUALIZED PARANASAL SINUSES: Well aerated. MASTOIDS: Well aerated. BONES: The bones appear intact. SOFT TISSUES: Visualized nasopharynx is normal. Superficial soft tissues are normal. IMPRESSION: No acute intracranial findings. Reviewed, dictated and finalized at location A.
[2024-08-15 09:47] VITALS: BP 176/81; PULSE 70; RESP 18; TEMP 36.3; O2SAT 98
--- OUTSIDE RECORDS SUMMARY | 2024-08-15 09:48 | XMS_ITS | Clinical Summary ---
Author Organization [facility] Address [address] [place] [address] Care Team Providers Care Process Owner Name Role Phone Unavailable Primary Care Provider Unavailabl e Social History Tobacco Use Types Packs/Day Years Used Date Smoking Tobacco: Never Assessed Comments Unknown Sex and Gender Information Value Date Recorded Sex Assigned at Not on file Legal Sex Female 6:40 PM CDT Gender Identity Not on file Sexual Orientation Not on file Plan of Treatment Health Maintenance Due Date Last Done Comments Hepatitis C 09/03/1963 DTaP, Tdap and Td Vaccines ( 1 - Tdap) 1964 Pneumococcal Vaccine: 50+ Ye ars (1 of 1 - PCV) 09/03/1995 Zoster Vaccines (1 of 2) 09/03/1995 Annual Medicare Wellness Visit 2010 Dexa Scan (General) 2010 RSV Immunization or 60+ Years (1 - 1-dose 75+ series) 2020 COVID-19 Vaccine (2023-2 5 season) 2023 Meningococcal B Vaccine Aged Out No l onger eligible based on patient's age to complete this topic Meningococcal Vaccine Aged Out No hortencia lana eligible based on patient's age to complete this topic RSV Immunizations Under 20 Months Aged Out No longer eligible based on patient's age to complete this topic Insurance MEDICARE
--- NOTE | 2024-08-15 10:03 | ED_ITS ---
HPI - Headache General Chief Complaint: Headache Stated Complaint: head hurts Time Seen by Provider: 08/15/24 09:48 Source: patient Mode of arrival: ambulatory Limitations: no limitations History of Present Illness HPI Narrative: Patient is a 78-year-old female presenting to the emergency room with a headache that started last night. She said it is sharp and in the front of the head. It does not radiate. It is about 7/10 pain. No head injury. No neck injury. She does have dementia and does not remember everything. she is not on blood thinners. She said the headache kept her up all night. She does not get regular headaches. MD elicited complaint: headache Pertinent past history: other ( None) Onset (ago): day(s) (2) Onset description: gradually and while at rest Location: frontal Severity: moderate Pain scale (0-10): 7 Quality & Timing: sharp Exacerbating factors: none Relieving factors: nothing Context: occurred at rest Associated symptoms: nausea Treatments prior to arrival: acetaminophen Related Data Home Medications ?Medication ?Instructions ?Recorded ?Confirmed ?Last Taken ?Type fosinopril 10 mg tablet 10 mg PO QAM 10/28/19 08/07/22 08/07/22 History glipizide 5 mg tablet, extended 5 mg PO BID 10/28/19 08/07/22 08/07/22 History release 24 hr metformin 500 mg tablet 1,000 mg PO BID 10/28/19 08/07/22 08/07/22 History pravastatin 20 mg tablet 20 mg PO HS 10/28/19 08/07/22 08/07/22 History vitamin B complex (B 1 tablet PO DAILY 10/05/20 08/07/22 08/07/22 History Complex-Vitamin B12 tablet) [id number] 8 mg-folic 400 1 tablet PO DAILY 04/26/22 08/07/22 08/07/22 History mcg-K 50 mcg-lutein 300 mcg tablet (Multivitamin Women 50 Plus) pantoprazole 20 mg tablet,delayed 20 mg PO QAM 04/26/22 08/07/22 08/07/22 History release Allergies Allergy/AdvReac Type Severity Reaction Status Date / Time aspirin Allergy Severe TROUBLE Verified 08/15/24 09:54 BREATHING Review of Systems 2 Review of Systems: All systems reviewed & are unremarkable except as noted in HPI and below Constitutional: Constitutional: Reports no additional constitutional complaints Eyes: Eyes: Reports no additional eye complaints ENT: Reports system reviewed and no additional complaints, except as documented Cardiovascular: Cardiovascular: Reports no additional cardiovascular complaints Respiratory: Respiratory: Reports no additional respiratory complaints Gastrointestinal: Gastrointestinal: Reports no additional gastrointestinal complaints Genitourinary: Genitourinary: Reports no additional female genitourinary complaints Musculoskeletal: Musculoskeletal: Reports no additional musculoskeletal complaints Integumentary/Breasts: Skin/Breast: Reports system reviewed and no additional complaints, except as docu Neurologic: Reports system reviewed and no additional complaints, except as documented Psychiatric: Psychiatric: Reports no additional psychiatric complaints Endocrine: Endocrine: Reports no additional endocrine complaints Hematologic/Lymphatic: Hematologic/Lymphatic: Reports no additional hematologic/lymphatic complaints Allergic/Immunologic: Allergic/Immunologic: Reports no additional allergic/immunologic complaints [facility] Past Medical History Medical History Hyperlipemia (Unknown) Vitamin D deficiency (Unknown) Osteoporosis (Unknown) DM type 2 (diabetes mellitus, type 2) (Unknown) HTN (hypertension) (Unknown) Surgical History Surgical History History of cholecystectomy Family History Family History Father No history of peptic ulcer disease Cerebrovascular accident Heart disease Mother No history of peptic ulcer disease Cerebrovascular accident Heart disease Social History Social History Smoking status: Never smoker Alcohol intake: current Alcohol use details: rarely Substance use: never Substance use type: does not use Living arrangements: alone Additional living arrangements comments: Lives alone, in Apr 2021 Gender identity (if verbalized by the patient): Female Sexual Orientation (if Verbalized by the Patient): Straight or Heterosexual Spiritual care concerns: No Exam 2 Const: General: healthy appearing Nutritional Appearance: well nourished Orientation/consciousness: patient oriented x3 HENMT: Head: normal to inspection Ears: external ears normal F christofer/Nose/Sinus: Normal external nose present Eyes: Conjunctivae: conjunctivae normal Pupils: Equal, round and reactive pupils present EOM: EOMs intact bilaterally Neck: Neck: normal visual inspection Chest: Chest palpation & inspection: normal inspection of the chest Resp: Effort & Inspection: normal respiratory effort and not labored A uscultation: clear to auscultation bilaterally and no crackles Cardio: Rate: regular rate Rhythm: regular rhythm Heart sounds: no murmurs GI: Inspection: non-distended GI Palp: Yes Soft to palpation and No Tenderness to palpation present (GI) Auscultation: normal bowel sounds : General: Yes bladder normal to palpation Back/Spine/Pelvis: Back: no CVA tenderness Neuro: General: patient oriented x3 Cranial nerves: Yes Nystagmus not present Speech: normal speech Extrem: General: normal to inspection Psych: Mental Status: mental status grossly normal Affect: normal affect Attitude: cooperative Course Vital Signs Vital signs: Vital Signs Temperature 36.3 C L 08/15/24 09:47 Pulse Rate 70 08/15/24 09:47 Respiratory Rate 18 08/15/24 09:47 Blood Pressure 176/81 H 08/15/24 09:47 Pulse Oximetry 98 08/15/24 09:47 Oxygen Delivery Room Air 08/15/24 09:47 Temperature 36.3 C L 08/15/24 09:47 Pulse Rate 81 08/15/24 12:47 Respiratory Rate 18 08/15/24 12:47 Blood Pressure 171/81 H 08/15/24 12:47 Pulse Oximetry 98 08/15/24 12:47 Oxygen Delivery Room Air 08/15/24 12:47 MDM - Headache MDM Narrative Medical decision making narrative: patient is a 78-year-old female with new onset headache in the frontal region since last night. Will start with a CT scan of the head for reassurance. If all negative, we will do labs and a UA. Lab Data Attestation: I reviewed the patient's lab results. 08/15/24 11:41 08/15/24 11:41 Labs: Lab Results 08/15/24 Range/Units 11:41 WBC 8.2 (4.8-10.8) K/mm3 RBC 4.90 (4.20-5.40) M/mm3 Hgb 14.2 H (11.7-13.8) g/dL Hct 41.3 (35.0-42.0) % MCV 84.3 (78.0-102.0) fL MCH 29.0 (27.0-31.0) pg MCHC 34.4 (32-36) g/dL RDW 12.4 (11.6-14.4) % Plt Count 240 (150-420) K/mm3 MPV 9.3 (9.2-11.8) fl Immature Gran % (Auto) 0.9 H (0.0-0.0) % Neut % (Auto) 73.8 H (50.0-70.0) % Lymph % (Auto) 17.0 L (18.0-42.0) % [place] % (Auto) 6.7 (2.0-11.0) % Eos % (Auto) 0.6 L (1.0-6.0) % Baso % (Auto) 1.0 (0.0-1.0) % Lymph # (Auto) 1.39 (1.10-4.50) K/mm3 [place] # (Auto) 0.55 (0.10-0.90) K/mm3 Eos # (Auto) 0.05 (0.02-0.50) K/mm3 Baso # (Auto) 0.08 (0.00-0.10) K/mm3 Abs Immat Gran (auto) 0.07 H (0.00-0.00) K/mm3 Absolute Neuts (auto) 6.02 (1.70-7.20) K/mm3 Absolute Nucleated RBC 0.00 (0.00-0.00) K/mm3 Nucleated RBC % 0.0 (0-0.0) % Sodium 139 (136-145) mmol/L Potassium 4.0 (3.5-5.1) mmol/L Chloride 101 (98-108) mmol/L Carbon Dioxide 25 (21-32) mmol/L Anion Gap 13 H (4-12) mmol/L BUN 25 H (7-18) mg/dL Creatinine 1.22 H (0.55-1.02) mg/dL Estim Creat Clear Calc 26 ml/min Estimated GFR 43 L (59 - ) Glucose 154 H (70-99) mg/dL Calculated Osmolality 295 (285-295) mOsm/kg Calcium 9.1 (8.5-10.1) mg/dL Total Bilirubin 0.7 (0.00-1.00) mg/dL AST 24 (15-37) U/L ALT 6 L (14-59) U/L Alkaline Phosphatase 76 (46-116) U/L Troponin I 7.7 (0.00-60.4) ng/L Total Protein 7.0 (6.4-8.2) g/dL Albumin 3.8 (3.4-5.0) g/dL Urine Color Light yellow (Yellow) Urine Appearance Clear (Clear) Urine pH 5.5 (5.0-8.0) Ur Specific [place] 1.025 H (1.010-1.020) Urine Protein Negative (Negative) Urine Glucose (UA) Negative (Negative) Urine Ketones 2+ H (Negative) Ur Blood (Man) Trace-intact H (Negative) Urine Nitrate Negative (Negative) Urine Bilirubin Negative (Negative) Urine Urobilinogen 0.2 (0.2-1.0) mg/dL Leukocyte Esterase Rfl Trace H (Negative) JAZMYN/UL Urine RBC 3-5 H (0-2) /hpf Urine WBC 10-15 H (0-3) /hpf Urine WBC Clumps Present H (None) /hpf Ur Squamous Epith Cells Occasional (Few) /hpf Urine Bacteria None seen (None) /hpf Urine Mucus Rare /lpf Imaging Data Attestation: I personally reviewed and interpreted this imaging study as follows: Radiologist's impression: CT scan of the head was negative for acute process Discharge Plan Discharge Clinical Impression: Acute UTI, Acute dehydration Patient Disposition: Home Condition: Stable Instructions: Antibiotic Form, Urinary Tract Infection in Older Adults (ED) Patient Language: [place]ican Prescriptions: New cephalexin 500 mg capsule 500 mg PO BID 7 Days Qty: 14 0RF No Action vitamin B complex [B Complex-Vitamin B12] Tablet 1 tablet PO DAILY pantoprazole 20 mg Tablet,Delayed Release (Dr/Ec) 20 mg PO QAM Multivitamin Women 50 Plus 8 mg iron-400 mcg-300 mcg Tablet 1 tablet PO DAILY fosinopril 10 mg tablet 10 mg PO QAM metformin 500 mg tablet 1,000 mg PO BID glipizide 5 mg tablet extended release 24hr 5 mg PO BID pravastatin 20 mg tablet 20 mg PO HS Follow-up/Referrals: Zully Betancourt MD [Primary Care Provider] - Time of Disposition: 12:47
--- NOTE | 2024-08-15 10:30 | PC.NURSE ---
Pt returns from CT
[2024-08-15 12:08] LABS: Basophils Absolute Auto 0.08 K/mm3 (0.00-0.10); Eosinophils Absolute Auto 0.05 K/mm3 (0.02-0.50); Eosinophils Percent Auto 0.6 % (1.0-6.0); Hematocrit 41.3 % (35.0-42.0); Hemoglobin 14.2 g/dL (11.7-13.8); Immature Granulocyte Absolute 0.07 K/mm3 (0.00-0.00); Immature Granulocyte Percent A 0.9 % (0.0-0.0); Lymphocytes Absolute Auto 1.39 K/mm3 (1.10-4.50); Mean Corpuscular HGB Conc 34.4 g/dL (32-36); Mean Corpuscular Volume 84.3 fL (78.0-102.0); Mean Platelet Volume 9.3 fl (9.2-11.8); Monocytes Absolute Auto 0.55 K/mm3 (0.10-0.90); Monocytes Percent Auto 6.7 % (2.0-11.0); Neutrophils Absolute Auto 6.02 K/mm3 (1.70-7.20); Neutrophils Percent Auto 73.8 % (50.0-70.0); Platelet Count Result 240 K/mm3 (150-420); Red Cell Distribution Width 12.4 % (11.6-14.4); White Blood Count 8.2 K/mm3 (4.8-10.8)
[2024-08-15 12:18] LABS: Add Urine Microscopic? YES; Appearance Urine Clear (Clear); Bilirubin Urine Negative (Negative); Blood Urine Trace-intact (Negative); Color Urine Light Yellow (Yellow); Glucose Urine UA Negative (Negative); Ketones Urine 2+ (Negative); Leukocyte Esterase Ur Trace LEU/UL (Negative); Nitrate Urine Negative (Negative); Protein Urine Negative (Negative); Specific Grav Ur 1.025 (1.010-1.020); Urobilinogen Urine 0.2 mg/dL (0.2-1.0); pH Urine 5.5 (5.0-8.0)
[2024-08-15 12:27] LABS: Bacteria Urine None seen /hpf; Squamous Epithelial Cell Urine Occasional /hpf (Few); WBC Clumps Urine Present /hpf
[2024-08-15 12:28] LABS: Mucus Urine Rare /lpf
[2024-08-15 12:36] LABS: Alanine Aminotransferase 6 U/L (14-59); Albumin Level 3.8 g/dL (3.4-5.0); Alkaline Phosphatase 76 U/L (46-116); Anion Gap 13 mmol/L (4-12); Aspartate Amino Transferase 24 U/L (15-37); Bilirubin,Total 0.7 mg/dL (0.00-1.00); Blood Urea Nitrogen 25 mg/dL (7-18); Calcium 9.1 mg/dL (8.5-10.1); Carbon Dioxide 25 mmol/L (21-32); Chloride 101 mmol/L (98-108); Estimated CRCL calculation 26 ml/min; Estimated Glomerular Filt Rate 43; Glucose 154 mg/dL (70-99); Osmolality Calculated 295 mOsm/kg (285-295); Sodium 139 mmol/L (136-145); Troponin I 7.7 ng/L (0.00-60.4)
--- NOTE | 2024-08-15 12:46 | PC.NURSE ---
meal provided with water
[2024-08-15 12:47] VITALS: BP 171/81; PULSE 81; RESP 18; O2SAT 98
--- NOTE | 2024-08-17 12:11 | PC.NURSE ---
final urine culture reviewed. no growth, no change in plan of care
== END 2024-08-15 13:09 | disposition home or self-care (01) ==
PROVIDERS: Emergency Provider Emergency Medicine; PCP Internal Medicine
DX: N39.0 Urinary tract infection, site not specified (principal); E86.0 Dehydration; E78.5 Hyperlipidemia, unspecified; E11.9 Type 2 diabetes mellitus without complications; I10 Essential (primary) hypertension
CPT/HCPCS: 36415; 70450; 80053; 81001; 84484; 85025; 87086; 99284

== ENCOUNTER 2024-08-17 15:00 | Observation (INO) | payer MEDICARE, SELFPAY ==
[2024-08-17] VITALS (26 sets, daily range): BP systolic 158–191; BP diastolic 54–96; PULSE 63–84; RESP 13–19; TEMP 36.6–36.8; O2SAT 97–100; BMI 19.3
--- NOTE | ~2024-08-17 | XR_ITS ---
XR chest 1V portable Ordering provider: Janes Sofia MD History: 78 years Female with . AMS . Comparison: September 22, 2017 FINDINGS: MEDIASTINUM: The cardiac silhouette is not enlarged. LUNGS: No infiltrates, effusions or pneumothorax. OTHER: No free air under the diaphragm. IMPRESSION: No acute cardiopulmonary pathology. Reviewed, dictated and finalized at location A.
--- NOTE | ~2024-08-17 | CT_ITS ---
EXAMINATION: CT brain wo con DATE: 08/17/2024 15:34 INDICATION: AMS, headache . TECHNIQUE: Computed tomography (CT) of the head was performed without intravenous contrast. The mA wa s adjusted according to patient size. Iterative reconstruction technique was employed. The dose-lengt h product was 529.67 mGy-cm. COMPARISON: 08/15/2024. FINDINGS: No acute intracranial hemorrhage or extra-axial fluid collection. No hydrocephalus, mass, or herniation. No acute ischemic infarct. Unremarkable dural venous sinus attenuation. No acute osseous abnormality. The aerated spaces are clear. Mild atrophy and chronic white matter change. Atherosclerotic intracranial calcification. IMPRESSION: No acute intracranial process. Reviewed, dictated and finalized at location K.
--- OUTSIDE RECORDS SUMMARY | 2024-08-17 15:10 | XMS_ITS | Clinical Summary ---
Author Organization [facility] Address [address] [place] [address] Care Team Providers Care Nuisance Animal Damage Control Agent Name Role Phone Unavailable Primary Care Provider [...]
--- NOTE | 2024-08-17 15:15 | ED_ITS ---
HPI - Altered Mental Status General Chief Complaint: Headache Stated Complaint: headache Time Seen by Provider: 08/17/24 15:14 Source: patient Mode of arrival: ambulatory Limitations: no limitations History of Present Illness HPI narrative: patient is a 78-year-old female with some altered mental status and confusion and memory loss over the past day. We did a call back from my visit with her the other day and she said she is still having headache. After we called her, she returned a call 5 work times to the emergency room and asked questions like it was the 1st call. We had family check on her and they felt that she was acting normal. By the 5th call however we felt it was proper for her to come in and get seen at this time. MD complaint: altered mental status and confusion Onset (ago): day(s) ( One) Severity: moderate Consistency of symptoms: constant Context: other ( patient has baseline dementia with medication from her primary doctor for the same but she is gotten worse in a short period of time.) Associated symptoms: headaches Treatments prior to arrival: other ( None) Related Data Home Medications ?Medication ?Instructions ?Recorded ?Confirmed ?Last Taken ?Type fosinopril 10 mg tablet 10 mg PO QAM 10/28/19 08/07/22 08/07/22 History glipizide 5 mg tablet, extended 5 mg PO BID 10/28/19 08/07/22 08/07/22 History release 24 hr metformin 500 mg tablet 1,000 mg PO BID 10/28/19 08/07/22 08/07/22 History pravastatin 20 mg tablet 20 mg PO HS 10/28/19 08/07/22 08/07/22 History vitamin B complex (B 1 tablet PO DAILY 10/05/20 08/07/22 08/07/22 History Complex-Vitamin B12 tablet) qztngrqe-eyck-yvzk 8 mg-folic 400 1 tablet PO DAILY 04/26/22 08/07/22 08/07/22 History mcg-K 50 mcg-lutein 300 mcg tablet (Multivitamin Women 50 Plus) pantoprazole 20 mg tablet,delayed 20 mg PO QAM 04/26/22 08/07/22 08/07/22 History release Allergies Allergy/AdvReac Type Severity Reaction Status Date / Time aspirin Allergy Severe TROUBLE Verified 08/17/24 15:09 BREATHING Review of Systems 2 Review of Systems: All systems reviewed & are unremarkable except as noted in HPI and below Constitutional: Constitutional: Reports no additional constitutional complaints Eyes: Eyes: Reports no additional eye complaints ENT: Reports system reviewed and no additional complaints, except as documented Cardiovascular: Cardiovascular: Reports no additional cardiovascular complaints Respiratory: Respiratory: Reports no additional respiratory complaints Gastrointestinal: Gastrointestinal: Reports no additional gastrointestinal complaints Genitourinary: Genitourinary: Reports no additional female genitourinary complaints Musculoskeletal: Musculoskeletal: Reports no additional musculoskeletal complaints Integumentary/Breasts: Skin/Breast: Reports system reviewed and no additional complaints, except as docu Neurologic: Reports system reviewed and no additional complaints, except as documented Psychiatric: Psychiatric: Reports no additional psychiatric complaints Endocrine: Endocrine: Reports no additional endocrine complaints Hematologic/Lymphatic: Hematologic/Lymphatic: Reports no additional hematologic/lymphatic complaints Allergic/Immunologic: Allergic/Immunologic: Reports no additional allergic/immunologic complaints PMFSH Past Medical History Medical History Hyperlipemia (Unknown) Vitamin D deficiency (Unknown) Osteoporosis (Unknown) DM type 2 (diabetes mellitus, type 2) (Unknown) HTN (hypertension) (Unknown) Surgical History Surgical History History of cholecystectomy Family History Family History Father No history of peptic ulcer disease Cerebrovascular accident Heart disease Mother No history of peptic ulcer disease Cerebrovascular accident Heart disease Social History Social History Smoking status: Never smoker Alcohol intake: current Alcohol use details: rarely Substance use: never Substance use type: does not use Living arrangements: alone Additional living arrangements comments: Lives alone, in Apr 2021 Gender identity (if verbalized by the patient): Female Sexual Orientation (if Verbalized by the Patient): Straight or Heterosexual Spiritual care concerns: No Exam 2 Const: General: healthy appearing Nutritional Appearance: well nourished Orientation/consciousness: patient oriented x3 Limitations: altered mental status Other: patient does not remember calling up to the hospital 5 times; she repeats the same questions over and over again not realizing she asked questions already and got answers HENMT: Head: normal to inspection Ears: external ears normal F christofer/Nose/Sinus: Normal external nose present Eyes: Conjunctivae: conjunctivae normal Pupils: Equal, round and reactive pupils present EOM: EOMs intact bilaterally Neck: Neck: normal visual inspection Chest: Chest palpation & inspection: normal inspection of the chest Resp: Effort & Inspection: normal respiratory effort and not labored A uscultation: clear to auscultation bilaterally and no crackles Cardio: Rate: regular rate Rhythm: regular rhythm Heart sounds: no murmurs GI: Inspection: non-distended GI Palp: Yes Soft to palpation and No Tenderness to palpation present (GI) Auscultation: normal bowel sounds : General: Yes bladder normal to palpation Back/Spine/Pelvis: Back: no CVA tenderness Skin: General skin exam: normal color Rashes: no rashes Wounds: no wounds Neuro: General: patient oriented x3 Cranial nerves: Yes Nystagmus not present Speech: normal speech Gait exam (Neuro): Normal gait present Extrem: General: normal to inspection Psych: Mental Status: mental status grossly abnormal Affect: normal affect Attitude: cooperative Course Vital Signs Vital signs: Vital Signs Temperature 36.8 C 08/17/24 15:00 Pulse Rate 72 08/17/24 15:00 Respiratory Rate 16 08/17/24 15:00 Blood Pressure 191/83 H 08/17/24 15:00 Pulse Oximetry 98 08/17/24 15:00 Oxygen Delivery Room Air 08/17/24 15:00 Temperature 36.8 C 08/17/24 15:00 Pulse Rate 73 08/17/24 16:25 Respiratory Rate 19 08/17/24 16:24 Blood Pressure 185/91 H 08/17/24 16:24 Pulse Oximetry 98 08/17/24 16:24 Oxygen Delivery Room Air 08/17/24 15:00 MDM - Altered Mental Status MDM Narrative Medical decision making narrative: patient is a 78-year-old female with some altered mental status /to confusion on top of her normal dementia. We will do a further neurological workup at this time. Lab Data Attestation: I reviewed the patient's lab results. 08/17/24 15:51 08/17/24 15:51 Labs: Lab Results 08/17/24 08/17/24 Range/Units 15:51 16:25 WBC 7.9 (4.8-10.8) K/mm3 RBC 5.12 (4.20-5.40) M/mm3 Hgb 14.8 H (11.7-13.8) g/dL Hct 43.2 H (35.0-42.0) % MCV 84.4 (78.0-102.0) fL MCH 28.9 (27.0-31.0) pg MCHC 34.3 (32-36) g/dL RDW 12.5 (11.6-14.4) % Plt Count 247 (150-420) K/mm3 MPV 9.0 L (9.2-11.8) fl Immature Gran % (Auto) 0.8 H (0.0-0.0) % Neut % (Auto) 71.6 H (50.0-70.0) % Lymph % (Auto) 18.8 (18.0-42.0) % [place] % (Auto) 7.6 (2.0-11.0) % Eos % (Auto) 0.6 L (1.0-6.0) % Baso % (Auto) 0.6 (0.0-1.0) % Lymph # (Auto) 1.48 (1.10-4.50) K/mm3 [place] # (Auto) 0.60 (0.10-0.90) K/mm3 Eos # (Auto) 0.05 (0.02-0.50) K/mm3 Baso # (Auto) 0.05 (0.00-0.10) K/mm3 Abs Immat Gran (auto) 0.06 H (0.00-0.00) K/mm3 Absolute Neuts (auto) 5.63 (1.70-7.20) K/mm3 Absolute Nucleated RBC 0.00 (0.00-0.00) K/mm3 Nucleated RBC % 0.0 (0-0.0) % Sodium 134 L (136-145) mmol/L Potassium 4.0 (3.5-5.1) mmol/L Chloride 98 (98-108) mmol/L Carbon Dioxide 22 (21-32) mmol/L Anion Gap 14 H (4-12) mmol/L BUN 24 H (7-18) mg/dL Creatinine 1.32 H (0.55-1.02) mg/dL Estim Creat Clear Calc 23 ml/min Estimated GFR 39 L (59 - ) Glucose 154 H (70-99) mg/dL Calculated Osmolality 285 (285-295) mOsm/kg Lactic Acid 3.7 H (0.4-2.0) mmol/L Calcium 9.3 (8.5-10.1) mg/dL Total Bilirubin 0.4 (0.00-1.00) mg/dL AST 28 (15-37) U/L ALT 23 (14-59) U/L Alkaline Phosphatase 65 (46-116) U/L Troponin I 5.5 (0.00-60.4) ng/L Total Protein 6.6 (6.4-8.2) g/dL Albumin 3.6 (3.4-5.0) g/dL TSH 0.92 (0.36-3.74) uIU/mL Urine Color Light yellow (Yellow) Urine Appearance Clear (Clear) Urine pH 5.5 (5.0-8.0) Ur Specific [place] >= 1.030 H (1.010-1.020) Urine Protein 1+ H (Negative) Urine Glucose (UA) Negative (Negative) Urine Ketones Trace H (Negative) Ur Blood (Man) Trace-intact H (Negative) Urine Nitrate Negative (Negative) Urine Bilirubin Negative (Negative) Urine Urobilinogen 0.2 (0.2-1.0) mg/dL Leukocyte Esterase Rfl Trace H (Negative) JAZMYN/UL Urine RBC 0-2 (0-2) /hpf Urine WBC 10-15 H (0-3) /hpf Ur Squamous Epith Cells Few (Few) /hpf Urine Bacteria 1+ H (None) /hpf RPR Pending RPR Titer Add Testing Pending Imaging Data Attestation: I personally reviewed and interpreted this imaging study as follows: Radiologist's impression: CT scan of the head was negative for acute process chest x-ray is negative for acute process ECG Data EKG #1: Attestation: I personally reviewed and interpreted this ECG as follows: ECG completion date: 08/17/24 ECG completion time: 15:46 EKG Interpretation: normal rate, sinus rhythm, no ectopy, non-specific ST changes, normal QRS, normal QT and NL axis Discharge Plan Discharge Clinical Impression: Acute alteration in mental status, Acute UTI, Dehydration, LEONID (acute kidney injury) Patient Disposition: Acute Care [facility] Condition: Stable Patient Language: Slovenian Prescriptions: No Action vitamin B complex [B Complex-Vitamin B12] Tablet 1 tablet PO DAILY cephalexin 500 mg capsule 500 mg PO BID 7 Days Qty: 14 0RF pantoprazole 20 mg Tablet,Delayed Release (Dr/Ec) 20 mg PO QAM Multivitamin Women 50 Plus 8 mg iron-400 mcg-300 mcg Tablet 1 tablet PO DAILY fosinopril 10 mg tablet 10 mg PO QAM metformin 500 mg tablet 1,000 mg PO BID glipizide 5 mg tablet extended release 24hr 5 mg PO BID pravastatin 20 mg tablet 20 mg PO HS Follow-up/Referrals: Zully Betancourt MD [Primary Care Provider] - Time of Disposition: 16:49
--- NOTE | 2024-08-17 15:20 | ECG_ITS ---
Test Date: 2024-08-17 15:45:03 Measurements Intervals [place] Rate: 68 P: 8 NM: 139 QRS: 72 QRSD: 82 T: 44 QT: 384 QTc: 408 Interpretive Statements SINUS RHYTHM NONSPECIFIC T-WAVE ABNORMALITY BORDERLINE ECG No previous ECG available for comparison Electronically Signed On 08-18-2024 07:29:21 CDT by Latrell Marquez M.D.
--- OUTSIDE RECORDS SUMMARY | 2024-08-17 15:34 | XMS_ITS | Clinical Summary ---
Author Organization [facility] Address [address] [place] [address] Care Team Providers Care Dip Tanker Name Role Phone Unavailable Primary Care Provider [...]
[2024-08-17 15:57] LABS: Basophils Absolute Auto 0.05 K/mm3 (0.00-0.10); Basophils Percent Auto 0.6 % (0.0-1.0); Eosinophils Absolute Auto 0.05 K/mm3 (0.02-0.50); Eosinophils Percent Auto 0.6 % (1.0-6.0); Hematocrit 43.2 % (35.0-42.0); Hemoglobin 14.8 g/dL (11.7-13.8); Immature Granulocyte Absolute 0.06 K/mm3 (0.00-0.00); Immature Granulocyte Percent A 0.8 % (0.0-0.0); Lymphocytes Absolute Auto 1.48 K/mm3 (1.10-4.50); Lymphocytes Percent Auto 18.8 % (18.0-42.0); Mean Corpuscular HGB Conc 34.3 g/dL (32-36); Mean Corpuscular Hemoglobin 28.9 pg (27.0-31.0); Mean Corpuscular Volume 84.4 fL (78.0-102.0); Monocytes Percent Auto 7.6 % (2.0-11.0); Neutrophils Absolute Auto 5.63 K/mm3 (1.70-7.20); Neutrophils Percent Auto 71.6 % (50.0-70.0); Platelet Count Result 247 K/mm3 (150-420); Red Blood Count 5.12 M/mm3 (4.20-5.40); Red Cell Distribution Width 12.5 % (11.6-14.4); White Blood Count 7.9 K/mm3 (4.8-10.8)
[2024-08-17 16:14] LABS: Alanine Aminotransferase 23 U/L (14-59); Albumin Level 3.6 g/dL (3.4-5.0); Alkaline Phosphatase 65 U/L (46-116); Anion Gap 14 mmol/L (4-12); Aspartate Amino Transferase 28 U/L (15-37); Bilirubin,Total 0.4 mg/dL (0.00-1.00); Blood Urea Nitrogen 24 mg/dL (7-18); Calcium 9.3 mg/dL (8.5-10.1); Carbon Dioxide 22 mmol/L (21-32); Chloride 98 mmol/L (98-108); Estimated CRCL calculation 23 ml/min; Estimated Glomerular Filt Rate 39; Glucose 154 mg/dL (70-99); Osmolality Calculated 285 mOsm/kg (285-295); Sodium 134 mmol/L (136-145); Total Protein 6.6 g/dL (6.4-8.2)
[2024-08-17 16:18] LABS: Lactic Acid Reflex 3.7 mmol/L (0.4-2.0)
[2024-08-17 16:33] LABS: Add Urine Microscopic? YES; Appearance Urine Clear (Clear); Bilirubin Urine Negative (Negative); Blood Urine Trace-intact (Negative); Color Urine Light Yellow (Yellow); Glucose Urine UA Negative (Negative); Ketones Urine Trace (Negative); Leukocyte Esterase Ur Trace LEU/UL (Negative); Nitrate Urine Negative (Negative); Protein Urine 1+ (Negative); Specific Grav Ur >= 1.030 (1.010-1.020); Urobilinogen Urine 0.2 mg/dL (0.2-1.0); pH Urine 5.5 (5.0-8.0)
[2024-08-17 16:34] LABS: Thyroid Stimulating Hormone 0.92 uIU/mL (0.36-3.74); Troponin I 5.5 ng/L (0.00-60.4)
[2024-08-17 16:39] LABS: RBC Urine 0-2 /hpf (0-2)
[2024-08-17 16:40] LABS: Bacteria Urine 1+ /hpf; Squamous Epithelial Cell Urine Few /hpf (Few)
[2024-08-17] MEDS: CIPROFLOXACIN 400 MG/D5W 200ML 200 ML 200 MG IVPB (17:00)
[2024-08-17] MEDS: SODIUM CHLORIDE 0.9% IV 1,000 ML 125 ML IV CONT (17:00)
[2024-08-17 17:54] LABS: Reflex Lactic Acid Yes or No Add Lactic
[2024-08-17 18:40] LABS: Lactic Acid 2.4 mmol/L (0.4-2.0)
--- NOTE | 2024-08-17 19:09 | ADMGEN ---
[id number] This patient, Lila Ravi, was admitted to 2nd Floor Room 207-1. here for dehydration, altermental status and uti. Patient/family oriented to hospital policies and general routines including ID bracelet, bed and alarms, visiting hours, pain management, procedures, bathroom and other care routines, personal items, smoking policy, room service/diet, and visiting hours. Information on how to activate the Rapid Response Team has been discussed. Patient/Family are encouraged to report perceived risks to care and to ask questions if they do not understand what they are told or what they should do.
[2024-08-17] MEDS: PIPERACILLIN/TAZ 2.25G/NS 50ML 2.25 GM/50 ML BAG IVPB (20:44)
[2024-08-17] MEDS: PRAVASTATIN SODIUM 20 MG TABLET PO (20:44)
[2024-08-17] MEDS: ACETAMINOPHEN 325 MG TABLET 650 MG PO (20:49)
[2024-08-17 21:05] LABS: Glucose Point of Care 139 mg/dl (65-105)
[2024-08-18] VITALS: BP 176/62; PULSE 53; PULSE 56; RESP 16; TEMP 36.5; O2SAT 99
[2024-08-18] MEDS: PIPERACILLIN/TAZ 2.25G/NS 50ML 2.25 GM/50 ML BAG IVPB ×4 (01:04→19:17)
[2024-08-18] MEDS: SODIUM CHLORIDE 0.9% IV 1,000 ML 125 ML IV CONT ×2 (01:12→11:00)
[2024-08-18] MEDS: ACETAMINOPHEN 325 MG TABLET 650 MG PO (03:57)
[2024-08-18 04:00] VITALS: BP 174/71; PULSE 56; PULSE 57; RESP 16; TEMP 36.3; O2SAT 98
[2024-08-18 05:51] LABS: Basophils Absolute Auto 0.05 K/mm3 (0.00-0.10); Basophils Percent Auto 0.8 % (0.0-1.0); Eosinophils Absolute Auto 0.16 K/mm3 (0.02-0.50); Eosinophils Percent Auto 2.7 % (1.0-6.0); Hematocrit 34.2 % (35.0-42.0); Hemoglobin 11.9 g/dL (11.7-13.8); Immature Granulocyte Absolute 0.04 K/mm3 (0.00-0.00); Immature Granulocyte Percent A 0.7 % (0.0-0.0); Lymphocytes Absolute Auto 1.49 K/mm3 (1.10-4.50); Lymphocytes Percent Auto 25.2 % (18.0-42.0); Mean Corpuscular HGB Conc 34.8 g/dL (32-36); Mean Corpuscular Hemoglobin 28.9 pg (27.0-31.0); Mean Platelet Volume 9.1 fl (9.2-11.8); Monocytes Absolute Auto 0.77 K/mm3 (0.10-0.90); Neutrophils Percent Auto 57.6 % (50.0-70.0); Platelet Count Result 198 K/mm3 (150-420); Red Blood Count 4.12 M/mm3 (4.20-5.40); Red Cell Distribution Width 12.3 % (11.6-14.4); White Blood Count 5.9 K/mm3 (4.8-10.8)
[2024-08-18 06:05] LABS: Alanine Aminotransferase 18 U/L (14-59); Albumin Level 2.8 g/dL (3.4-5.0); Alkaline Phosphatase 48 U/L (46-116); Aspartate Amino Transferase 20 U/L (15-37); Bilirubin,Total 0.5 mg/dL (0.00-1.00); Blood Urea Nitrogen 18 mg/dL (7-18); Calcium 7.9 mg/dL (8.5-10.1); Chloride 103 mmol/L (98-108); Estimated CRCL calculation 28 ml/min; Estimated Glomerular Filt Rate 49; Glucose 132 mg/dL (70-99); Osmolality Calculated 285 mOsm/kg (285-295); Potassium 3.4 mmol/L (3.5-5.1); Sodium 136 mmol/L (136-145); Total Protein 5.2 g/dL (6.4-8.2)
[2024-08-18 06:13] LABS: Anion Gap 9 mmol/L (4-12); Carbon Dioxide 24 mmol/L (21-32)
[2024-08-18] MEDS: PANTOPRAZOLE SOD SESQUIHYDRATE 20 MG TAB PO (07:57)
[2024-08-18] MEDS: lisinopriL 10 MG TABLET PO ×2 (07:58→10:56)
[2024-08-18 08:00] VITALS: BP 183/57; PULSE 62; PULSE 80; RESP 18; TEMP 36.4; O2SAT 99
[2024-08-18] MEDS: POTASSIUM CHLORIDE 20 MEQ PACKET (FOR LIQUID) 40 MEQ PO (09:44)
--- NOTE | 2024-08-18 11:39 | P.HP_ITS ---
H&P: HPI History of Present Illness Date/Time: 08/18/24 11:39 Chief Complaint: AMS Narrative: Patient is a 70-year-old female who presented to the emergency department after multiple phone calls from ER staff for follow-up. patient had been seen for some worsening memory and confusion per reports ER may call Back calls to patient which time she still reported having a headache and she need multiple phone calls back to the emergency department not remembering that she had called previously. ER reached out to patient's family member who checked on patient and recommended she come to the emergency department. when speaking with patient she does not remember calling or how she got to the emergency department but does remember being there. Patient states she has been having worsening short-term memory issues and per medical chart family is aware of that as well. patient has never been officially diagnosed with Alzheimer's or dementia but has been suffering from short-term memory loss. patient was able to tell me who she was where she was at when her birthday was but not how old she was. initial CT head showed no acute intracranial process however UA was suspicious for urinary tract infection and she was noted to be hypertensive. Patient was admitted to the medical unit for further evaluation and treatment. patient denied any chest pain, shortness breath, nausea, vomiting, difficulty urinating, dizziness did report mild headache. Review of Systems Review of Systems: All systems reviewed & are unremarkable except as noted in HPI and below PMFSH Past Medical History Medical History (Updated 08/18/24 @ 11:49 by Allison Queen APRN) Alzheimer dementia Hyperlipemia (Unknown) Vitamin D deficiency (Unknown) Osteoporosis (Unknown) DM type 2 (diabetes mellitus, type 2) (Unknown) HTN (hypertension) (Unknown) Surgical History Surgical History History of cholecystectomy Family History Family History Father No history of peptic ulcer disease Cerebrovascular accident Heart disease Mother No history of peptic ulcer disease Cerebrovascular accident Heart disease Social History Social History Smoking status: Never smoker Second hand tobacco smoke exposure: No Alcohol intake: unknown Alcohol use details: rarely Substance use: never Substance use type: does not use Do You Feel Safe in your Home?: Yes Lack of Transportation: No Lack of Food: Never True Current Housing: I Have Housing Concerned About Future Housing: No Difficulty Paying Gas/Electric Bills: No Difficulty Paying for Meds: No Currently Unemployed: No Education: High School Diploma/GED Difficulty w/ Childcare or Family Care: No Living arrangements: alone Additional living arrangements comments: Lives alone, in Apr 2021 Gender identity (if verbalized by the patient): Female Sexual Orientation (if Verbalized by the Patient): Straight or Heterosexual Spiritual care concerns: No Meds Home Medications and Allergies Home Medications ?Medication ?Instructions ?Recorded ?Confirmed ?Type fosinopril 10 mg tablet 10 mg PO QAM 10/28/19 08/17/24 History glipizide 5 mg tablet, extended 5 mg PO BID 10/28/19 08/17/24 History release 24 hr metformin 500 mg tablet 1,000 mg PO BID 10/28/19 08/17/24 History pravastatin 20 mg tablet 20 mg PO HS 10/28/19 08/17/24 History vitamin B complex (B 1 tablet PO DAILY 10/05/20 08/17/24 History Complex-Vitamin B12 tablet) [id number] 8 mg-folic 400 1 tablet PO DAILY 04/26/22 08/17/24 History mcg-K 50 mcg-lutein 300 mcg tablet (Multivitamin Women 50 Plus) pantoprazole 20 mg tablet,delayed 20 mg PO QAM 04/26/22 08/17/24 History release cephalexin 500 mg capsule 500 mg PO BID 7 days #14 caps 08/15/24 08/17/24 Rx Allergies Allergy/AdvReac Type Severity Reaction Status Date / Time aspirin Allergy Severe TROUBLE Verified 08/17/24 15:09 BREATHING ciprofloxacin (From Cipro) Allergy Redness of Verified 08/17/24 19:01 Skin Vital Signs Vital Signs - 24 hr 08/17/24 15:00 08/17/24 15:12 08/17/24 15:15 Temperature 98.2 F Pulse Rate 72 Respiratory Rate 16 Blood Pressure 191/83 H Pulse Oximetry 98 98 97 Oxygen Delivery Room Air 08/17/24 15:16 08/17/24 15:25 08/17/24 15:37 Temperature Pulse Rate 67 71 72 Respiratory Rate 16 17 Blood Pressure 158/74 H Pulse Oximetry 97 99 Oxygen Delivery 08/17/24 15:45 08/17/24 15:58 08/17/24 15:59 Temperature Pulse Rate 72 69 68 Respiratory Rate 18 15 13 Blood Pressure 160/70 H Pulse Oximetry 99 99 99 Oxygen Delivery 08/17/24 16:00 08/17/24 16:01 08/17/24 16:15 Temperature Pulse Rate 64 65 66 Respiratory Rate 14 14 15 Blood Pressure 173/70 H Pulse Oximetry 99 99 99 Oxygen Delivery 08/17/24 16:17 08/17/24 16:24 08/17/24 16:25 Temperature Pulse Rate 67 81 73 Respiratory Rate 16 19 Blood Pressure 168/63 H 185/91 H Pulse Oximetry 99 98 Oxygen Delivery 08/17/24 16:25 08/17/24 16:30 08/17/24 16:32 Temperature Pulse Rate 68 68 65 Respiratory Rate 18 15 15 Blood Pressure 184/96 H Pulse Oximetry 99 99 99 Oxygen Delivery 08/17/24 16:45 08/17/24 16:46 08/17/24 17:00 Temperature Pulse Rate 67 73 66 Respiratory Rate 18 18 13 Blood Pressure 185/82 H 182/72 H Pulse Oximetry 99 99 99 Oxygen Delivery 08/17/24 17:01 08/17/24 17:15 08/17/24 17:16 Temperature Pulse Rate 63 75 68 Respiratory Rate 19 18 17 Blood Pressure 174/54 H Pulse Oximetry 100 99 99 Oxygen Delivery 08/17/24 17:19 08/17/24 18:00 08/17/24 20:00 Temperature 98 F Pulse Rate 70 84 70 Respiratory Rate 18 18 Blood Pressure 158/74 H Pulse Oximetry 97 97 Oxygen Delivery Room Air Room Air 08/17/24 20:00 08/17/24 20:00 08/18/24 00:00 Temperature 97.8 F Pulse Rate 73 66 53 L Respiratory Rate 16 Blood Pressure 170/60 H Pulse Oximetry 98 Oxygen Delivery Room Air 08/18/24 00:00 08/18/24 04:00 08/18/24 04:00 Temperature 97.7 F 97.4 F L Pulse Rate 56 L 57 L 56 L Respiratory Rate 16 16 Blood Pressure 176/62 H 174/71 H Pulse Oximetry 99 98 Oxygen Delivery Room Air Room Air Exam Narrative: Pleasant female looks stated age Const: General: comfortable and no acute distress HENMT: Face/Nose/Sinus: Normal nares present Mouth: Yes moist mucous membranes Eyes: General: appearance normal, both eyes and all related structures Sclera: sclerae normal Pupils: Equal, round and reactive pupils present EOM: EOMs intact bilaterally Neck: Neck: supple and no JVD Resp: Effort & Inspection: normal respiratory effort Auscultation: clear to auscultation bilaterally Cardio: Rate: regular rate Rhythm: regular rhythm GI: GI Palp: Yes Soft to palpation Auscultation: normal bowel sounds Skin: General skin exam: normal color and no rashes or lesions noted Wounds: no wounds Neuro: General: gait normal Speech: normal speech Motor exam (neuro): 5/5 motor strength present throughout Sensory Exam: normal sensation Other: Short term memory loss and intermittent confusion Extrem: General: normal to inspection Psych: Mental Status: mental status grossly normal Affect: normal affect H&P: Results Labs Labs: Short CBC 08/17/24 08/18/24 Range/Units 15:51 05:20 WBC 7.9 5.9 (4.8-10.8) K/mm3 Hgb 14.8 H 11.9 (11.7-13.8) g/dL Hct 43.2 H 34.2 L (35.0-42.0) % Plt Count 247 198 (150-420) K/mm3 BMP 08/17/24 08/18/24 15:51 05:20 Sodium 134 L 136 Potassium 4.0 3.4 L Chloride 98 103 Carbon Dioxide 22 24 BUN 24 H 18 Creatinine 1.32 H 1.09 H Glucose 154 H 132 H Calcium 9.3 7.9 L Cardiac Enzymes 08/17/24 Range/Units 15:51 Troponin I 5.5 (0.00-60.4) ng/L Liver Function 08/17/24 08/18/24 Range/Units 15:51 05:20 Total Bilirubin 0.4 0.5 (0.00-1.00) mg/dL AST 28 20 (15-37) U/L ALT 23 18 (14-59) U/L Alkaline Phosphatase 65 48 (46-116) U/L Albumin 3.6 2.8 L (3.4-5.0) g/dL Urine 08/17/24 Range/Units 16:25 Urine Color Light yellow (Yellow) Urine Appearance Clear (Clear) Urine pH 5.5 (5.0-8.0) Ur Specific [place] >= 1.030 H (1.010-1.020) Urine Protein 1+ H (Negative) Urine Glucose (UA) Negative (Negative) Assessment and Plan Assessment and plan (1) Acute alteration in mental status: Code(s): R41.82 - Altered mental status, unspecified Status: Acute Assessment and Plan: patient with intermittent confusion and short-term memory loss reported history of but it getting worse likely Alzheimer's/ dementia could be also partially due to urinary tract infection CT with no intracranial process. * antibiotics to UTI * recommend outpatient evaluation able to do mini-mental here. (2) Acute UTI: Code(s): N39.0 - Urinary tract infection, site not specified Status: Acute Assessment and Plan: UA was suspicious for urinary tract infection, leukocyte positive 10-15 WBCs +bacteria * IV Zosyn pending culture (3) HTN (hypertension): Onset Date: Unknown Code(s): I10 - Essential (primary) hypertension Status: Acute Assessment and Plan: patient with elevated BP systolics around 170s and patient reporting mild headache * continue lisinopril and increase to 20 mg may need further adjustment with secondary BP medication * BP per unit protocol (4) LEONID (acute kidney injury): Code(s): N17.9 - Acute kidney failure, unspecified Status: Acute Assessment and Plan: patient with acute kidney injury creatinine 1.22 likely secondary to dehydration * IV fluids * avoid nephrotoxic medications * serial renal function (5) Hypokalemia: Code(s): E87.6 - Hypokalemia Status: Acute Assessment and Plan: * K+ 3.4 * replenished 40 meq * serial BMP replenish to keep >4.0 Plan Code status: Full code per patient DVT prophylaxis: Lovenox Stress ulcer prophylaxis: Na PT/OT notes: ambulatory Disposition: patient continues admission for altered mental status and confusion secondary with UTI and dehydration will continue with IV fluids and IV antibiotics pending culture patient is ambulatory on own but due to her worsening short-term memory she may need some extra assistance at home since she does live by herself likely needs follow-up testing outpatient further evaluation for possible Alzheimer's/dementia. Quality VTE Prophylaxis VTE prophylaxis: pharmacologic ordered -Patient's previous records reviewed on admission -ER notes reviewed in detail on admission -discussed all findings and current treatment plan with patient/Family/POA -Consultations reviewed for recommendations -Patient's disposition for safe discharge discussed with director case Dictation performed by [employer] direct speech recognition software, therefore practical nursing teacher variants and typographical errors may occur. Hospitalist MENDY Advance Care Plan I have confirmed that the patient's Advanced Care Plan is present, code status is documented, or surrogate decision maker is listed in patient medical record.: Yes Medication Reconciliation I have utilized all available resources to obtain, update and review the patients current medications (includes all prescriptions, OTC, herbals, cannabis, and nutritional supplements).: Yes The patient is not eligible for med reconciliation; the patient is in a emergent medical situation where delaying treatment would jeopardize the patients health.: No
[2024-08-18 12:00] VITALS: BP 159/69; PULSE 62; RESP 18; TEMP 36.2; O2SAT 97
[2024-08-18 12:09] LABS: Glucose Point of Care 132 mg/dl (65-105)
[2024-08-18 16:00] VITALS: BP 120/59; PULSE 62; PULSE 69; RESP 18; TEMP 36.9; O2SAT 98
[2024-08-18 16:54] LABS: Glucose Point of Care 147 mg/dl (65-105)
[2024-08-18 20:00] VITALS: BP 136/72; PULSE 68; PULSE 69; RESP 18; TEMP 36.4; O2SAT 100
[2024-08-18] MEDS: PRAVASTATIN SODIUM 20 MG TABLET PO (21:30)
[2024-08-18 21:34] LABS: Glucose Point of Care 198 mg/dl (65-105)
[2024-08-19] VITALS: BP 142/62; PULSE 60; RESP 20; TEMP 36.1; O2SAT 99
--- NOTE | 2024-08-19 00:30 | PC.NURSE ---
Pt up to the bathroom with standby assist of one and voided. pt back to bed with standby assist of one. Side rails up x3 and bed alarm on.
[2024-08-19] MEDS: PIPERACILLIN/TAZ 2.25G/NS 50ML 2.25 GM/50 ML BAG IVPB ×2 (01:12→06:50)
--- NOTE | 2024-08-19 01:35 | PC.NURSE ---
IV zosyn 2.25 gm hung and infusing as ordered.
--- NOTE | 2024-08-19 02:20 | PC.NURSE ---
Pt asleep and no signs of discomfort noted.
[2024-08-19 04:00] VITALS: BP 140/64; PULSE 52; RESP 20; TEMP 36.4; O2SAT 96
--- NOTE | 2024-08-19 04:05 | PC.NURSE ---
Pt asleep and no signs of discomfort noted.
[2024-08-19 05:36] LABS: Hematocrit 33.5 % (35.0-42.0); Hemoglobin 11.4 g/dL (11.7-13.8); Mean Corpuscular Volume 85.2 fL (78.0-102.0); Mean Platelet Volume 9.2 fl (9.2-11.8); Platelet Count Result 175 K/mm3 (150-420); Red Blood Count 3.93 M/mm3 (4.20-5.40); Red Cell Distribution Width 12.7 % (11.6-14.4); White Blood Count 6.3 K/mm3 (4.8-10.8)
[2024-08-19 06:30] LABS: Anion Gap 3 mmol/L (4-12); Blood Urea Nitrogen 17 mg/dL (7-17); Carbon Dioxide 23 mmol/L (22-30); Chloride 109 mmol/L (98-107); Estimated CRCL calculation 30 ml/min; Estimated Glomerular Filt Rate 51; Potassium 4.3 mmol/L (3.4-5.0); Sodium 135 mmol/L (137-145)
[2024-08-19 06:31] LABS: Alanine Aminotransferase 13 U/L (6-35); Albumin Level 2.8 g/dL (3.5-5.1); Alkaline Phosphatase 51 U/L (38-126); Aspartate Amino Transferase 25 U/L (14-36); Bilirubin,Total 0.5 mg/dL (0.2-1.3); Calcium 8.2 mg/dL (8.4-10.2); Glucose 126 mg/dL (65-110); Osmolality Calculated 283 mOsm/kg (285-295); Total Protein 4.9 g/dL (6.3-8.2)
[2024-08-19 08:00] VITALS: BP 132/61; PULSE 49; PULSE 58; RESP 16; TEMP 36.3; O2SAT 99
[2024-08-19] MEDS: PANTOPRAZOLE SOD SESQUIHYDRATE 20 MG TAB PO (10:21)
[2024-08-19] MEDS: lisinopriL 20 MG TABLET PO (10:21)
--- NOTE | 2024-08-19 11:11 | P.DS_ITS ---
DS: Admitting Diagnosis Discharge Date 08/19/2024 Admitting Diagnosis AMS/Dehydration DS: Discharge Diagnosis Discharge Diagnosis (1) Acute alteration in mental status: Code(s): R41.82 - Altered mental status, unspecified Status: Acute (2) HTN (hypertension): Onset Date: Unknown Code(s): I10 - Essential (primary) hypertension Status: Acute (3) LEONID (acute kidney injury): Code(s): N17.9 - Acute kidney failure, unspecified Status: Acute (4) Hypokalemia: Code(s): E87.6 - Hypokalemia Status: Acute Plan Disposition: discharged to home DS: Summary Hospital Course Reason for hospitalization: AMS/Dehydration Hospital Course: Patient was a 70-year-old female who presented to the emergency department after multiple phone calls from ER staff for follow-up. patient had been seen for some worsening memory and confusion per reports ER may call Back calls to patient which time she still reported having a headache and she need multiple phone calls back to the emergency department not remembering that she had called previously. ER reached out to patient's family member who checked on patient and recommended she come to the emergency department. when speaking with patient she does not remember calling or how she got to the emergency department but does remember being there. Patient states she has been having worsening short-term memory issues and per medical chart family is aware of that as well. patient has never been officially diagnosed with Alzheimer's or dementia but has been suffering from short-term memory loss. patient was able to tell me who she was where she was at when her birthday was but not how old she was. initial CT head showed no acute intracranial process however UA was suspicious for urinary tract infection and she was noted to be hypertensive. Patient was admitted to the medical unit for further evaluation and treatment. patient denied any chest pain, shortness breath, nausea, vomiting, difficulty urinating, dizziness did report mild headache. Hospital course: Patient continued hospitalization overnight no acute distress or complaints noted she did continue to intermittent forgetfulness and reported her memory has worsened. Patient was ruled out for UTI with no growth on culture. Patient's LEONID did respond well to IV fluids and stabilized. I spoke with patient's son Vijay regarding patient's dressing memory issues and some concerns due to her currently living on her own he did report he has trackers on her but I did recommend no further driving for her own safety as well as not using the stove alone. she currently is not on Aricept or Namenda Vijay patient's son plans to follow-up with primary care physician Dr. Betancourt. patient is discharging back to home her son Vijay plans on further plans for her safety regarding living arrangements. I also recommended Smart light up water bottle to increase patient's water intake to decrease chances of dehydration. patient was hypertensive during her admission could be cause of her mild headache so I did increase her fosinopril to 20 mg daily. patient and son acknowledged and agreed with discharge plan patient was discharged home with her son Vijay. Status at Discharge Functional status at discharge: independent ambulation Time Spent with Patient Time attestation: Total time spent providing and/or coordinating discharge services: Time spent: Greater than 30 minutes Exam Narrative: Pleasant female looks stated age Const: General: comfortable and no acute distress HENMT: Face/Nose/Sinus: Normal nares present Mouth: Yes moist mucous membranes Eyes: General: appearance normal, both eyes and all related structures Sclera: sclerae normal Pupils: Equal, round and reactive pupils present EOM: EOMs intact bilaterally Neck: Neck: supple and no JVD Resp: Effort & Inspection: normal respiratory effort Auscultation: clear to auscultation bilaterally Cardio: Rate: regular rate Rhythm: regular rhythm GI: Auscultation: normal bowel sounds Skin: General skin exam: normal color and no rashes or lesions noted Wounds: no wounds Neuro: General: gait normal Cranial nerves: Yes Equal, round and reactive pupils present Speech: normal speech Motor exam (neuro): 5/5 motor strength present throughout Sensory Exam: normal sensation Other: Short term memory loss and intermittent confusion Extrem: General: normal to inspection Psych: Mental Status: mental status grossly normal Affect: normal affect DS: Data Data Completed and Pending Labs on day of discharge: Labs from last 24 hours 08/19/24 08/18/24 08/18/24 05:11 21:33 16:50 WBC 6.3 RBC 3.93 L Hgb 11.4 L Hct 33.5 L MCV 85.2 MCH 29.0 MCHC 34.0 RDW 12.7 Plt Count 175 MPV 9.2 Sodium 135 L Potassium 4.3 Chloride 109 H Carbon Dioxide 23 Anion Gap 3 L BUN 17 Creatinine 1.05 H Estim Creat Clear Calc 30 Estimated GFR 51 L Glucose 126 H POC Capillary Glucose 198 H 147 H Calculated Osmolality 283 L Calcium 8.2 L Total Bilirubin 0.5 AST 25 ALT 13 Alkaline Phosphatase 51 Total Protein 4.9 L Albumin 2.8 L 08/18/24 12:05 WBC RBC Hgb Hct MCV MCH MCHC RDW Plt Count MPV Sodium Potassium Chloride Carbon Dioxide Anion Gap BUN Creatinine Estim Creat Clear Calc Estimated GFR Glucose POC Capillary Glucose 132 H Calculated Osmolality Calcium Total Bilirubin AST ALT Alkaline Phosphatase Total Protein Albumin Preliminary micro results at discharge 08/17/24 15:44 Blood Culture - Preliminary Blood 08/17/24 15:50 Blood Culture - Preliminary Blood Imaging Radiologist's impression: EXAMINATION: CT brain wo con DATE: 08/17/2024 15:34 INDICATION: AMS, headache . TECHNIQUE: Computed tomography (CT) of the head was performed without intravenous contrast. The mA was adjusted according to patient size. Iterative reconstruction technique was employed. The dose-length product was 529.67 mGy- cm. COMPARISON: 08/15/2024. FINDINGS: No acute intracranial hemorrhage or extra-axial fluid collection. No hydrocephalus, mass, or herniation. No acute ischemic infarct. Unremarkable dural venous sinus attenuation. No acute osseous abnormality. The aerated spaces are clear. Mild atrophy and chronic white matter change. Atherosclerotic intracranial calcification. IMPRESSION: No acute intracranial process. Discharge Plan Discharge Attending physician on discharge: Carlos Zeng Consulting providers: Allison Queen Discharging Clinician: Allison Queen Anticipated Discharge Date/Time: 08/19/24 11:05 Patient Disposition: Home Activity: may shower, no driving and as tolerated Diet: diabetic Discharge Instructions: Confusion: Dementia * Recommend not driving at this time for your safety * Follow-up with primary care physician may want to start on Aricept or Namenda * Recommend not using the stove or oven when alone * Encourage oral hydration can use Smart light up water bottle to help increase water intake How can you care for yourself at home? ? Keep track of any new symptoms or changes in your symptoms. ? Rest until you feel better. ? Be safe with medicines. Take your medicines exactly as prescribed. Call your doctor if you think you are having a problem with your medicine. ? Do not drive after taking a prescription pain medicine. ? Ensure to follow-up with primary care physician as indicated and provide updated medication list provided to you at discharge. When should you call for help? Call 911 anytime you think you may need emergency care. For example, call if: ? You passed out (lost consciousness). Call your doctor now or seek immediate medical care if: ? You have new symptoms like fever, difficulty breathing, Chest pain, vomiting, or rash. ? You have new or different pain. ? You are confused and are having trouble thinking clearly. ? Your symptoms are getting worse. Watch closely for changes in your health, and be sure to contact your doctor if: ? You do not get better as expected. Patient Instructions: Antibiotic Form, Dehydration (DC), Alzheimer Disease (DC), Dementia (GEN) Patient Language: Honduran Stand Alone Forms: General Discharge Information Follow-up/Referrals: Zully Betancourt MD [Primary Care Provider] - 2 weeks Discharge Medications: New fosinopril 20 mg tablet 20 mg PO DAILY Qty: 30 0RF Continued vitamin B complex [B Complex-Vitamin B12] Tablet 1 tablet PO DAILY pantoprazole 20 mg Tablet,Delayed Release (Dr/Ec) 20 mg PO QAM Multivitamin Women 50 Plus 8 mg iron-400 mcg-300 mcg Tablet 1 tablet PO DAILY metformin 500 mg tablet 1,000 mg PO BID glipizide 5 mg tablet extended release 24hr 5 mg PO BID pravastatin 20 mg tablet 20 mg PO HS Discontinued cephalexin 500 mg capsule 500 mg PO BID 7 Days Qty: 14 0RF fosinopril 10 mg tablet 10 mg PO QAM Date of admission: 08/17/24 17:00 Primary Care Provider: Zully Betancourt Admitting Provider: Carlos Zeng Attending physician on admission: Carlos Zeng Condition: Stable Quality VTE Prophylaxis VTE prophylaxis: pharmacologic ordered -Patient's previous records reviewed on admission -ER notes reviewed in detail on admission -discussed all findings and current treatment plan with patient/Family/POA -Consultations reviewed for recommendations -Patient's disposition for safe discharge discussed with shelter case manager Dictation performed by [employer] direct speech recognition software, therefore fuse assembler variants and typographical errors may occur. Hospitalist MIPS Heart Failure (Exclusion) Patient has history of Heart Transplant or Left Ventricular Assistive Device?: No IF YES, STOP HERE Heart Failure (Qualifier) Patient has current or prior documentation of LVEF less than or equal to 40%, or mod/servere depressed LVSF?: No IF NO, STOP HERE
[2024-08-19 12:00] VITALS: PULSE 81
--- NOTE | 2024-08-19 12:07 | PC.NURSE ---
Discharge instructions reviewed with patient and her son, Vijay. All questions answered. Pt going to eat lunch before leaving facility.
[2024-08-19 13:19] LABS: RPR Screen NON-REACTIVE (NON-REACTIVE)
== END 2024-08-19 12:40 | disposition home or self-care (01) ==
LOC: CHSED 16:49 → CHS2ND 17:17
PROVIDERS: Nurse Practitioner Family; Admitting Provider Internal Medicine; Emergency Provider Emergency Medicine; PCP Internal Medicine; Visit Provider Internal Medicine
DX: R41.82 Altered mental status, unspecified (principal); N39.0 Urinary tract infection, site not specified; I10 Essential (primary) hypertension; N17.9 Acute kidney failure, unspecified; E86.0 Dehydration; E87.6 Hypokalemia; E11.9 Type 2 diabetes mellitus without complications; E78.5 Hyperlipidemia, unspecified; E55.9 Vitamin D deficiency, unspecified; M81.0 Age-related osteoporosis without current pathological fracture; Z90.49 Acquired absence of other specified parts of digestive tract; Z79.84 Long term (current) use of oral hypoglycemic drugs; Z79.899 Other long term (current) drug therapy
CPT/HCPCS: 36415; 70450; 71045; 80053; 81001; 82948; 83605; 84443; 84484; 85025; 85027; 86592; 87040; 87086; 93005; 96365; 96366; 99285; A9270; G0378; J0744; J2543; J7030

== ENCOUNTER 2024-09-16 09:04 | Outpatient (CLI) | payer MEDICARE, SELFPAY ==
[2024-09-16 09:26] LABS: Basophils Absolute Auto 0.06 K/mm3 (0.00-0.10); Basophils Percent Auto 1.1 % (0.0-1.0); Eosinophils Percent Auto 3.6 % (1.0-6.0); Hematocrit 35.7 % (35.0-42.0); Hemoglobin 11.7 g/dL (11.7-13.8); Immature Granulocyte Absolute 0.06 K/mm3 (0.00-0.00); Immature Granulocyte Percent A 1.1 % (0.0-0.0); Lymphocytes Absolute Auto 1.54 K/mm3 (1.10-4.50); Lymphocytes Percent Auto 27.4 % (18.0-42.0); Mean Corpuscular HGB Conc 32.8 g/dL (32-36); Mean Corpuscular Hemoglobin 28.7 pg (27.0-31.0); Mean Corpuscular Volume 87.5 fL (78.0-102.0); Mean Platelet Volume 8.9 fl (9.2-11.8); Monocytes Absolute Auto 0.55 K/mm3 (0.10-0.90); Monocytes Percent Auto 9.8 % (2.0-11.0); Neutrophils Absolute Auto 3.22 K/mm3 (1.70-7.20); Platelet Count Result 234 K/mm3 (150-420); Red Blood Count 4.08 M/mm3 (4.20-5.40); White Blood Count 5.6 K/mm3 (4.8-10.8)
[2024-09-16 09:36] LABS: Hemoglobin A1C 6.2 % (<5.7)
[2024-09-16 10:00] LABS: Alanine Aminotransferase 10 U/L (6-35); Alkaline Phosphatase 47 U/L (38-126); Anion Gap 5 mmol/L (4-12); Aspartate Amino Transferase 24 U/L (14-36); Bilirubin,Total 0.5 mg/dL (0.2-1.3); Blood Urea Nitrogen 21 mg/dL (7-17); Calcium 9.2 mg/dL (8.4-10.2); Carbon Dioxide 28 mmol/L (22-30); Chloride 106 mmol/L (98-107); Cholesterol 188 mg/dL (0-200); Creatine Kinase 29 U/L (30-135); Estimated Glomerular Filt Rate 57; Glucose 138 mg/dL (65-110); HDL Direct 62 mg/dL; Iron 69 ug/dL (37-170); LDL Cholesterol Calculated 103 mg/dL (<130); Osmolality Calculated 293 mOsm/kg (285-295); Potassium 4.3 mmol/L (3.4-5.0); Sodium 139 mmol/L (137-145); Total Protein 6.2 g/dL (6.3-8.2); Triglycerides 117 mg/dL (<150)
[2024-09-16 10:18] LABS: Vitamin D 25 Hydroxy 29.9 ng/mL
[2024-09-16 10:42] LABS: Free T3 2.97 pg/mL (2.18-3.98)
[2024-09-16 22:20] LABS: Add Urine Microscopic? YES; Appearance Urine Clear (Clear); Bilirubin Urine Negative (Negative); Blood Urine Negative (Negative); Color Urine Light Yellow (Yellow); Glucose Urine UA Negative (Negative); Ketones Urine Negative (Negative); Leukocyte Esterase Ur 1+ LEU/UL (Negative); Nitrate Urine Negative (Negative); Protein Urine Negative (Negative); Urobilinogen Urine 0.2 mg/dL (0.2-1.0); pH Urine 5.5 (5.0-8.0)
[2024-09-16 22:24] LABS: Creatinine Urine 92.9 mg/dL
[2024-09-16 22:29] LABS: MALB Creatinine Ratio 14.7 mg/g (0-30); Microalbumin Urine Random 13.7 mg/L (0-16.7)
[2024-09-16 22:35] LABS: Bacteria Urine Trace /hpf; RBC Urine 0-2 /hpf (0-2); Squamous Epithelial Cell Urine None seen /hpf (Few)
[2024-09-20 16:54] LABS: Red Blood Cell Folate 574 ng/mL RBC (>280)
[2024-09-21 16:19] LABS: Methylmalonic Acid 156 nmol/L (69-390)
== END 2024-09-16 09:05 | disposition home or self-care (01) ==
LOC: CHSLAB 09:06
PROVIDERS: PCP Internal Medicine; Visit Provider Internal Medicine
DX: E11.65 Type 2 diabetes mellitus with hyperglycemia (principal); I10 Essential (primary) hypertension; E78.2 Mixed hyperlipidemia; F03.A0 Unspecified dementia, mild, without behavioral disturbance, psychotic disturbance, mood disturbance, and anxiety; M81.0 Age-related osteoporosis without current pathological fracture; E53.8 Deficiency of other specified B group vitamins; G25.81 Restless legs syndrome; N18.2 Chronic kidney disease, stage 2 (mild); R82.90 Unspecified abnormal findings in urine
CPT/HCPCS: 36415; 80053; 80061; 81001; 82043; 82306; 82550; 82607; 82728; 82747; 83036; 83540; 83921; 84439; 84443; 84481; 85025; 87086